=== PATIENT | female | born 1975 | race Caucasian/White ===

== ENCOUNTER 2021-01-22 17:22 | Emergency (ER) | payer MEDICAID, OTHER ==
[~2021-01-22] VITALS: Ht 162.6 cm; Wt 61.2 kg
[~2021-01-22 17:22] MED LIST: ESCI10TA PO
[2021-01-22] MEDS ORDERED: ESCI10TA PO (17:40)
[2021-01-22] MEDS ORDERED: KETOROLAC TROMETHAMINE 15 MG INJ IVP ONE (18:00)
[2021-01-22] MEDS ORDERED: METOCLOPRAMIDE HCL 10 MG/2 ML VIAL IV ONE (18:00)
[2021-01-22] MEDS ORDERED: IV NORMAL SALINE 500 ML BAG IV ONE (18:00)
[2021-01-22] MEDS ORDERED: ACETAMINOPHEN 325 MG TABLET PO ONE (18:00)
[2021-01-22] MEDS ORDERED: diphenhydrAMINE 50 MG/1 ML VIAL IV ONE (18:00)
[2021-01-22] MEDS ORDERED: METOCLOPRAMIDE HCL 10 MG/2 ML VIAL ONE (18:18)
[2021-01-22] MEDS ORDERED: ACETAMINOPHEN 325 MG TABLET ONE (18:18)
[2021-01-22] MEDS ORDERED: KETOROLAC TROMETHAMINE 15 MG INJ ONE (18:18)
[2021-01-22] MEDS ORDERED: diphenhydrAMINE 50 MG/1 ML VIAL ONE (18:18)
[2021-01-22 18:46] LABS: *BILIRUBIN,URIN NEGATIVE (NEGATIVE); *BLOOD, URINE 2+ (NEGATIVE); *CLARITY,URINE SLIGHTLY CLOUDY (CLEAR); *COLOR,URINE YELLOW (YELLOW); *KETONES,URINE TRACE (NEGATIVE); *UROBILINOGEN,URINE 0.2 E.U./dl (NORMAL); LEUKOCYTE ESTERASE ,URINE NEGATIVE (NEGATIVE); NITRITE, URINE NEGATIVE (NEGATIVE); UGLUCOSE NEGATIVE (NEGATIVE)
[2021-01-22 18:49] LABS: *URINE HCG, QUAL NEGATIVE (NEGATIVE)
[2021-01-22 19:04] LABS: BACTERIA,URINE NONE SEEN /HPF (NONE SEEN); WBC,URINE 0-3 /HPF (0-3)
[2021-01-22 19:05] LABS: SQUAMOUS EPITHELIAL CELL,UR MANY /HPF (NONE SEEN)
[2021-01-22] MEDS ORDERED: diphenhydrAMINE 25 MG CAP PO ONE ×2 (19:15→19:24)
--- NOTE | 2021-01-22 19:15 | NUR ---
Pt states headache is gone, and wishes to be discharged.
--- NOTE | 2021-01-22 19:24 | NUR ---
IV removed. Catheter intact and site benign. Pressure and 4x4 gauze applied to site. No bleeding noted.
[2021-01-22 19:33] VITALS: BP 101/65
--- NOTE | 2021-01-22 19:33 | NUR ---
Patient discharged to home in stable condition. Written and verbal after care instructions given. Patient verbalizes understanding of instructions. Stressed follow up or return to ER for worsening s/s.
== END 2021-01-22 19:34 | disposition home or self-care (01) ==
LOC: ER 17:26
DX: R51.9 Headache, unspecified (principal); Z82.49 Family history of ischemic heart disease and other diseases of the circulatory system; F41.9 Anxiety disorder, unspecified; Z79.899 Other long term (current) drug therapy; K58.9 Irritable bowel syndrome, unspecified
CPT/HCPCS: 81001; 84703; 96361; 96374; 96375; 99284; J1200; J1885; J2765; Q0163; A4663; J7030

== ENCOUNTER 2021-01-23 23:20 | Inpatient (IN) | payer OTHER ==
[~2021-01-23] VITALS: Ht 162.6 cm; Wt 61.3 kg
--- NOTE | 2021-01-23 23:45 | NUR ---
Pt here for fever and fatigue past 3 days. States she began having urinary retention today and has not urinated in 6 hours.
[2021-01-24] MEDS ORDERED: IBUPROFEN 600 MG TABLET PO ONE (00:15)
[2021-01-24] MEDS ORDERED: IV NORMAL SALINE 1000 ML BAG IV ONE (00:15)
[2021-01-24] MEDS ORDERED: IBUPROFEN 600 MG TABLET ONE (00:27)
[2021-01-24 00:38] LABS: HEMATOCRIT 35.9 % (31.2-41.9); MEAN CORPUSCULAR HEMOGLOBIN 28.9 uug (24.7-32.8); MEAN CORPUSCULAR VOLUME 86.7 fL (75.5-95.3); PLATELET COUNT (AUTO) 342 K/uL (179-408)
--- NOTE | 2021-01-24 00:40 | NUR ---
Pts. BNP elevated per lab. MD Cleary aware, Per MD Cleary, continue normal saline 2L bolus until completion.
[2021-01-24 00:55] LABS: BILIRUBIN,DIRECT 0.1 mg/dL (0.0-0.2); BILIRUBIN,TOTAL 0.5 mg/dL (0.2-1.0); CREATININE 1.1 mg/dL (0.6-1.3); TOTAL PROTEIN, SERUM 7.8 g/dL (6.4-8.2)
[2021-01-24 00:57] LABS: POTASSIUM 2.6 mmol/L (3.5-5.1)
[2021-01-24] MEDS ORDERED: CEFTRIAXONE 1 G in IV DEXTROSE 5% 50 ML IV ONE (01:15)
[2021-01-24] MEDS ORDERED: IV 1/2 NS + KCL 20 MEQ BAG 1,000 ML IV ONE (01:15)
--- NOTE | 2021-01-24 01:15 | NUR ---
Pt. reports abdominal pain relieved after urinary catheter placed. 800cc romero urine drained. Pt. resting in bed comfortably. Will continue to monitor.
--- NOTE | 2021-01-24 01:20 | NUR ---
Pts stated she felt warm. Oral temp 99.5. Pt. given ice packs.
[2021-01-24 01:24] LABS: *BILIRUBIN,URIN NEGATIVE (NEGATIVE); *BLOOD, URINE 1+ (NEGATIVE); *CLARITY,URINE CLEAR (CLEAR); *COLOR,URINE YELLOW (YELLOW); *KETONES,URINE NEGATIVE (NEGATIVE); *UROBILINOGEN,URINE 0.2 E.U./dl (NORMAL); LEUKOCYTE ESTERASE ,URINE NEGATIVE (NEGATIVE); NITRITE, URINE NEGATIVE (NEGATIVE); UGLUCOSE NEGATIVE (NEGATIVE)
[2021-01-24] MEDS ORDERED: CEFTRIAXONE 1 G VIAL ONE (01:33)
[2021-01-24] MEDS ORDERED: POTASSIUM CHLORIDE 0 ML ONE (01:34)
[2021-01-24 01:46] LABS: BACTERIA,URINE NONE SEEN /HPF (NONE SEEN); SQUAMOUS EPITHELIAL CELL,UR FEW /HPF (NONE SEEN); WBC,URINE 0-3 /HPF (0-3)
[2021-01-24 01:47] LABS: *URINE HCG, QUAL NEGATIVE (NEGATIVE)
[2021-01-24 01:53] LABS: LYMPHOCYTES % (MANUAL) 32 % (20-40); MONOCYTES % (MANUAL) 4 % (2-10); NEUTROPHILS % (MANUAL) 51 % (42-75)
--- NOTE | 2021-01-24 02:19 | NUR ---
US at bedside
--- NOTE | 2021-01-24 02:31 | NUR ---
[facility] called, MD Pritchard paged. Pending call back.
--- NOTE | 2021-01-24 03:18 | NUR ---
Patient will be going to room 312 per Nursing Barrel Stave Inspector Moustapha.
--- NOTE | 2021-01-24 03:21 | NUR ---
Gave report to GARO Lucia.
[2021-01-24] MEDS ORDERED: IV NS 1000 ML 1,000 ML IV ONE (03:30)
[2021-01-24] MEDS ORDERED: Z GUARD REMEDY PASTE 57 GM TUBE TOP PRN (03:30)
--- NOTE | 2021-01-24 04:30 | NUR ---
Admitted a 45 y/o female to [facility] with an admitting diagnosis of FUO and Lactic Acidosis. Pt is ambulatory, transferred to bed by herself. Repositioned comfortably in bed. Head to toe assessment done. No signs of respiratory distress noted on room air. Denies any pain or discomfort. IV access intact and patent, IVF infusing well. With Trejo cath, intact and draining well. Admission care rendered, belongings checked and placed at bedside. Safety measures initiated, call light within reach.
--- NOTE | 2021-01-24 04:30 | NUR ---
Pts total UO since lieberman placement was 2.35 L.
[2021-01-24 04:55] VITALS: BP 98/65
[2021-01-24 06:29] LABS: PHOSPHOROUS 2.8 mg/dL (2.5-4.9); POTASSIUM 3.2 mmol/L (3.5-5.1)
--- NOTE | 2021-01-24 07:00 | NUR ---
pt received in bed sleeping .no c/o pain noted vs are stable call light with in reach
[2021-01-24] MEDS: ESCITALOPRAM OXALATE 10 MG TABLET PO SCH (08:06)
[2021-01-24] MEDS: HYDROCODONE/APAP 5-325MG TABLET PO PRN (08:23)
[2021-01-24 09:22] VITALS: BP 135/61
--- NOTE | 2021-01-24 10:00 | NUR ---
pt c/o of pain in the abdomen and radiate to the back md notified new orders received noted and carried out,
[2021-01-24] MEDS ORDERED: POTASSIUM CHLORIDE 20 MEQ TAB.PRT.SR PO ONE (10:30)
[2021-01-24 11:07] LABS: HEMATOCRIT 34.5 % (31.2-41.9); MEAN CORPUSCULAR HEMOGLOBIN 28.9 uug (24.7-32.8); MEAN CORPUSCULAR VOLUME 88.3 fL (75.5-95.3); PLATELET COUNT (AUTO) 313 K/uL (179-408)
[2021-01-24 11:54] VITALS: BP 121/69
--- NOTE | 2021-01-24 12:00 | NUR ---
dc folly catheter per md orders
[2021-01-24 12:01] LABS: BILIRUBIN,TOTAL 0.3 mg/dL (0.2-1.0); CREATININE 0.8 mg/dL (0.6-1.3); POTASSIUM 3.4 mmol/L (3.5-5.1); TOTAL PROTEIN, SERUM 6.9 g/dL (6.4-8.2)
[2021-01-24] MEDS ORDERED: SWABABLE VALVE TRANSFER SET EA MC ONE (12:06)
[2021-01-24] MEDS ORDERED: IV NORMAL SALINE 250 ML IV ONE (12:07)
[2021-01-24] MEDS ORDERED: IOHEXOL 300MG/ML 100 ML INFUS..BTL ONE (12:07)
--- NOTE | 2021-01-24 14:00 | NUR ---
pt c/o of blurry vision and saying some body give her poison at home md and egg caser made aware
[2021-01-24] MEDS: ONDANSETRON 4 MG/2 ML VIAL IV PRN (15:21)
[2021-01-24 16:21] VITALS: BP 125/69
[2021-01-24] MEDS: ACETAMINOPHEN 325 MG TABLET PO PRN (16:40)
[2021-01-24] MEDS: IBUPROFEN 600 MG TABLET PO PRN (18:18)
[2021-01-24 20:48] VITALS: BP 122/70
[2021-01-25] MEDS: ONDANSETRON 4 MG/2 ML VIAL IV PRN (00:16)
[2021-01-25 00:27] VITALS: BP 122/78
--- NOTE | 2021-01-25 00:55 | NUR ---
Patient continue to c/o blurrry vision .Stated its more blurry on the left side.Non reactive to light.Neeraj eyes able to track.Denies headache.Vomited x1.Zofran IVP given .Patient also c/o neeraj lower legs numbness.Able to move.No edema noted. notified with new order received noted and carried out.
[2021-01-25 04:23] VITALS: BP 123/54
[2021-01-25 06:31] LABS: HEMATOCRIT 35.5 % (31.2-41.9); MEAN CORPUSCULAR VOLUME 86.4 fL (75.5-95.3); PLATELET COUNT (AUTO) 381 K/uL (179-408)
[2021-01-25 06:49] LABS: MAGNESIUM 2.2 mg/dL (1.8-2.4); PHOSPHOROUS 2.7 mg/dL (2.5-4.9); POTASSIUM 4.3 mmol/L (3.5-5.1)
[2021-01-25] MEDS: ESCITALOPRAM OXALATE 10 MG TABLET PO SCH (08:30)
--- NOTE | 2021-01-25 08:48 | NUR ---
pt received laying in bed, alert and oriented able to make needs know, denies pain at this time. patient is on r/a with no episode of sob. Morning meds administered po and tolerated well, pt had breakfast and tolerated well.
[2021-01-25] MEDS: HYDROCODONE/APAP 5-325MG TABLET PO PRN (10:32)
[2021-01-25] MEDS ORDERED: METRONIDAZOLE 500 MG TABLET PO SCH ×2 (11:00→20:00)
[2021-01-25] MEDS: IV NS 1000 ML 1,000 ML IV PRN (11:12)
[2021-01-25] MEDS ORDERED: LACTULOSE 20 G/30 ML LIQUID UDC PO ONE (11:15)
[2021-01-25] MEDS: PANTOPRAZOLE SODIUM 40 MG TABLET.DR PO SCH (11:17)
[2021-01-25 12:00] VITALS: BP 122/73
[2021-01-25] MEDS: CIPROFLOXACIN HCL 250 MG TABLET PO SCH ×2 (12:08→20:31)
[2021-01-25 16:07] VITALS: BP 125/75
--- NOTE | 2021-01-25 18:50 | NUR ---
patient stating " i cant talk" reassure pt that she was currently talking, pt requesting medical update, explained that pt is on IV fluids and on an atb therapy, encouraged po fluid and encouraged to eat dinner. pt remains stable at this time, v/s wnl.
[2021-01-25 19:56] VITALS: BP 138/73
[2021-01-25] MEDS ORDERED: CLOPIDOGREL 75 MG TABLET PO ONE (22:23)
--- NOTE | 2021-01-25 23:00 | NUR ---
Received report of patient from day shift nurse of patient being weak. Upon initial assessment of patient, she was found to be aphasic and unable to move her right lower extremity. Her left lower extremity had mild weakness. Bilateral upper extremities WNL. Pupils both equal but left pupil sluggish to light. Code stroke called at 2038H and patient taken to CT with portable monitor. Dr. Valle notified of patient's condition. At 2134 Dr. Valle notified of patient's CT results. Tele Stroke Robot initiated for use. Neurologist Wisam Beauchamp consulted with patient.
[2021-01-25] MEDS ORDERED: SWABABLE VALVE TRANSFER SET EA MC ONE (23:12)
[2021-01-25] MEDS ORDERED: IOHEXOL 350 100 ML INFUS..BTL ONE (23:12)
[2021-01-25] MEDS ORDERED: IV NORMAL SALINE 250 ML IV ONE (23:12)
--- NOTE | 2021-01-25 23:15 | NUR ---
Pt transferred to CCU bed 3 under care of GARO Sawyer.
[2021-01-25 23:19] VITALS: BP 148/76
[2021-01-25] MEDS: ATORVASTATIN 40 MG TABLET PO SCH (23:28)
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
[2021-01-26] VITALS (27 sets, daily range): BP systolic 110–155; BP diastolic 65–107
[2021-01-26] MEDS ORDERED: CEFTRIAXONE 2 G VIAL IM SCH
[2021-01-26] MEDS ORDERED: FLUCONAZOLE 200 MG/NS 100ML IV 100 MG in PREMIXED 1 EACH IV SCH
--- NOTE | 2021-01-26 | NUR ---
Spoke with Dr. Jay regarding the current status of the patient. Confirmed CTA of the head and carotid arteries ordered by Tele Neurologist. Dr. Jay also discussed ruling out encephalitis and meningitis, though no order for LP at this time. Orders to DC all antibiotics and new orders for Rocephin 2gm IV Daily with first dose now, and Diflucan 100mg IV daily with first dose now.
[2021-01-26] MEDS ORDERED: FLUCONAZOLE 200 MG/100 ML PIGGYBACK ONE (00:51)
[2021-01-26] MEDS ORDERED: CEFTRIAXONE 1 G VIAL ONE ×2 (00:51→00:56)
--- NOTE | 2021-01-26 01:00 | NUR ---
Returned from CT. Patient tolerated CTA and contrast injection without incident or reaction.
[2021-01-26] MEDS: IV NS 1000 ML 1,000 ML IV PRN ×2 (01:32→17:52)
[2021-01-26] MEDS: CEFTRIAXONE 2 G in IV DEXTROSE 5% 100 ML IV SCH (02:34)
[2021-01-26 04:06] LABS: *GC NAA Negative (Negative); *TRIC.VAG. NAA Negative (Negative)
[2021-01-26 05:17] LABS: HEMATOCRIT 30.5 % (31.2-41.9); MEAN CORPUSCULAR HEMOGLOBIN 29.7 uug (24.7-32.8); MEAN CORPUSCULAR VOLUME 86.4 fL (75.5-95.3); PLATELET COUNT (AUTO) 354 K/uL (179-408)
[2021-01-26 05:28] LABS: CREATININE 0.7 mg/dL (0.6-1.3); MAGNESIUM 2.1 mg/dL (1.8-2.4); PHOSPHOROUS 2.6 mg/dL (2.5-4.9)
--- NOTE | 2021-01-26 05:58 | NUR ---
Patient has remained stable throughout the shift. Patient's neuro status seems to vary, sometimes she is alert, and other times she appears confused with eyes rolling around, eyelids half-lidded, head listlessly moving side to side, arms moving with no real purpose, and generally with an overall appearance and mannerisms that is similar to someone grossly intoxicated. Patient has remained afebrile, though feels a little warm, with oral temperature 98.6 at this time. VS remained stable HR in the 60s-70s SR, BP in the 130s systolic, O2 SAT 100% RA, no complaints of pain. Patient has been self administering fluids, drinking 2/3rds a bottle of water. Patient able to swallow well without signs of aspiration.
[2021-01-26] MEDS: PANTOPRAZOLE SODIUM 40 MG TABLET.DR PO SCH (07:05)
[2021-01-26] MEDS: ESCITALOPRAM OXALATE 10 MG TABLET PO SCH ×2 (08:18→08:36)
[2021-01-26] MEDS ORDERED: SWABABLE VALVE TRANSFER SET EA MC ONE (09:00)
[2021-01-26] MEDS ORDERED: IOHEXOL 350 100 ML INFUS..BTL ONE (09:01)
[2021-01-26] MEDS ORDERED: IV NORMAL SALINE 250 ML IV ONE (09:01)
[2021-01-26 09:47] LABS: BILIRUBIN,DIRECT 0.2 mg/dL (0.0-0.2); BILIRUBIN,TOTAL 0.4 mg/dL (0.2-1.0); TOTAL PROTEIN, SERUM 6.7 g/dL (6.4-8.2)
--- NOTE | 2021-01-26 10:01 | NUR ---
patient back from CT of head. No abnormalities during transport. case management called for arrangement for MRI transport to be set at 11.
[2021-01-26 10:22] LABS: THYROID STIMULATING HORMONE 0.33 mIU/mL (0.358-3.740)
--- NOTE | 2021-01-26 12:08 | NUR ---
plan for intubation post MRI arrival.
--- NOTE | 2021-01-26 12:36 | NUR ---
positive bubble study. MRI transport here and cleared to got to MRI per Dr. Banks. informed Ashlye, waiting for final clearance per ashley.
[2021-01-26 12:51] LABS: ABG BASE EXCESS -0.5 mmol/L; ABG HCO3 23.4 mmol/L; ABG PCO2 35.8 mmHg (35.0-45.0); ABG PH 7.434 (7.350-7.450); ABG PO2 82.3 mmHg (75.0-100.0); ABG SITE LEFT BRACHIAL; ABG TOTAL HEMOGLOBIN 10.8 G/dL (12.0-16.0); COHb 0.9 % (0.5-1.5); MetHb 0.2 % (0.0-1.5); O2Hb 95.2 % (94.0-97.0); VENT MODE Nasal Cannula
[2021-01-26 12:52] LABS: BILIRUBIN,DIRECT 0.2 mg/dL (0.0-0.2); BILIRUBIN,TOTAL 0.5 mg/dL (0.2-1.0); TOTAL PROTEIN, SERUM 6.8 g/dL (6.4-8.2)
--- NOTE | 2021-01-26 12:56 | NUR ---
patient taken to MRI cleared by cardio and primary. patient left at this time. and Covid result is negative.
[2021-01-26] MEDS: ENSURE ENLIVE (VAN) 240 ML LIQUID PO SCH ×2 (13:00→17:00)
--- NOTE | 2021-01-26 13:49 | NUR ---
due to plavix being given per radiologist patient can not have LP done for 5 days since the last dose. will let ID now
--- NOTE | 2021-01-26 14:41 | NUR ---
patient back from MRI.
[2021-01-26] MEDS ORDERED: DEXTROSE 5% IV SCH (15:00)
[2021-01-26] MEDS ORDERED: ACYCLOVIR IV SCH (15:00)
[2021-01-26] MEDS ORDERED: NOREPINEPHRINE BITARTRATE 8 MG in IV NORMAL SALINE 242 ML IV PRN (15:15)
[2021-01-26] MEDS ORDERED: PROPOFOL 100 ML IV PRN (15:15)
--- NOTE | 2021-01-26 15:35 | NUR ---
patient intubated at this time per DR. gusman in ER for airway protection. 30mg of Etomidate and 80 of succinylcholine was given for intubation.
--- NOTE | 2021-01-26 15:35 | NUR ---
Pt intubated for airway protection per Ashley Arenas WELDER FITTER. Assisted ER Dr. Glaser. 7.0 ETT @ approx 21cm at the lip. Given vent settings AC RR 16, Vt 450, PEEP +5, Fio2 30%. Tolerating well. ABG done in 1 hr.
[2021-01-26 17:07] LABS: ABG BASE EXCESS 0.2 mmol/L; ABG HCO3 23.7 mmol/L; ABG PCO2 34.7 mmHg (35.0-45.0); ABG PH 7.453 (7.350-7.450); ABG PO2 128.6 mmHg (75.0-100.0); ABG SITE LEFT BRACHIAL; COHb 0.9 % (0.5-1.5); MetHb 0.3 % (0.0-1.5); O2Hb 97.5 % (94.0-97.0); VENT MODE VENT - A/C; VT, ABG 450 mL
[2021-01-26] MEDS: DEXTROSE 5% IV SCH (17:49)
[2021-01-26] MEDS: VANCOMYCIN IV 1,000 MG in IV DEXTROSE 5% 250 ML IV SCH (17:49)
[2021-01-26] MEDS: ACYCLOVIR IV SCH (17:49)
[2021-01-26] MEDS: FLUCONAZOLE 400MG /NS 200ML IV 400 MG in PREMIXED 1 EACH IV SCH (17:52)
--- NOTE | 2021-01-26 19:30 | NUR ---
Report received. Patient admitted 01/24/21 DX: Fever of unknown origin and lactic acidosis. S/P intubation this pm to mechanical ventilator with settings AC=16, PC=655 ml, FIO2=30% and PEEP=5 cm. O2 saturations above 94%. Opens eyes to pain, doesn't track or follow any commands. Withdraws to pain. Turned and repositioned. Addendum: 01/27/21 at 0055 by MICKEY WALDROP RN Amended: Links added. Addendum: 01/27/21 at 0055 by MICKEY WALDROP RN Amended: Links added. Addendum: 01/27/21 at 0102 by MICKEY WALDROP RN Amended: Links added.
[2021-01-26] MEDS ORDERED: methylPREDNISolone SOD SUCC 1,000 MG in IV DEXTROSE 5% 250 ML IV SCH (20:00)
--- NOTE | 2021-01-26 20:00 | NUR ---
Dr. Jay here along with patient's friend Tanya who as per report is an [employer]. had discussed with Tanya plan of care.
--- NOTE | 2021-01-26 20:15 | NUR ---
As friend Tanya visits, patient opens eyes to name calls, appears to track, able to follow basic command such as squeeze RN's hands. Withdraws LEs from stroking.
[2021-01-26] MEDS ORDERED: CLOPIDOGREL 75 MG TABLET PO SCH (21:00)
--- NOTE | 2021-01-26 21:00 | NUR ---
Spoke to Susana Arenas NURSE ORTHOPEDIC re: LP procedure that according to Tanya family wants done KENYA. Orders received from Susana Arenas.
[2021-01-26] MEDS: methylPREDNISolone SOD SUCC 1,000 MG in IV DEXTROSE 5% 250 ML IV SCH (21:11)
[2021-01-26] MEDS: ATORVASTATIN 40 MG TABLET PO SCH (21:12)
[2021-01-26 21:44] LABS: *URINE HCG, QUAL NEGATIVE (NEGATIVE)
--- NOTE | 2021-01-26 21:45 | NUR ---
Phone consent for Lumbar puncture obtained from patient's mother Katia Wesley #[phone].
[2021-01-27] VITALS (32 sets, daily range): BP systolic 95–135; BP diastolic 55–77
--- NOTE | 2021-01-27 | NUR ---
Bath given. Patient with eyes open, tracks and follow simple commands such as squeezing RN's hands. Turned and repositioned. Addendum: 01/27/21 at 0102 by MICKEY WALDROP RN Amended: Links added.
[2021-01-27] MEDS: CEFTRIAXONE 2 G in IV DEXTROSE 5% 100 ML IV SCH (01:11)
[2021-01-27] MEDS: ACYCLOVIR IV SCH ×3 (02:06→18:08)
[2021-01-27] MEDS: DEXTROSE 5% IV SCH ×3 (02:06→18:08)
--- NOTE | 2021-01-27 03:00 | NUR ---
PATIENT ON CONT PB 840 VENT WITH 7.0 ET/TUBE IN PLACE AND SECURED WITH ANCHOR FAST IN PLACE, AND MOVE Q2 HOURS; VENT SETTINGS, A/C 16 , 450ML, PEEP5, FIO2 @ 30% ; SUCTIONED SLIGHT PINKISH TINGE SECRETIONS, SUCTION MOUTH, PT DOES ASSIST AT TIMES, SLIGHTLY WAKES UP WITH EYES OPEN AT TIMES, NO VENT CHANGES MADE, ABG @ 0800 ORDERED. Stacia KIRKLAND RCP Addendum: 01/27/21 at 0304 by ALVIN KIRKLAND RT Amended: Links added.
[2021-01-27 05:01] LABS: HEMATOCRIT 29.5 % (31.2-41.9); MEAN CORPUSCULAR HEMOGLOBIN 29.4 uug (24.7-32.8); MEAN CORPUSCULAR VOLUME 86.6 fL (75.5-95.3); PLATELET COUNT (AUTO) 329 K/uL (179-408)
[2021-01-27] MEDS: VANCOMYCIN IV 1,000 MG in IV DEXTROSE 5% 250 ML IV SCH ×2 (05:11→18:08)
[2021-01-27 05:22] LABS: BILIRUBIN,TOTAL 0.6 mg/dL (0.2-1.0); CREATININE 0.7 mg/dL (0.6-1.3); MAGNESIUM 2.4 mg/dL (1.8-2.4); PHOSPHOROUS 2.8 mg/dL (2.5-4.9); TOTAL PROTEIN, SERUM 6.3 g/dL (6.4-8.2)
[2021-01-27] MEDS: IV NS 1000 ML 1,000 ML IV PRN ×2 (06:15→20:08)
[2021-01-27] MEDS: PANTOPRAZOLE SODIUM 40 MG TABLET.DR PO SCH (06:16)
--- NOTE | 2021-01-27 06:30 | NUR ---
Seen by Dr. Davidson; updated of patient's condition.
--- NOTE | 2021-01-27 06:40 | NUR ---
Dr. Garcia visited. Aware of patient's condition and pending LP procedure.
--- NOTE | 2021-01-27 06:41 | NUR ---
Condition unchanged. Opens eyes to name, tracks, able to follow basic commands such as turn head to R, squeeze RN's hand. Withdraws L leg to pain. R leg and hand flaccid. Remains on the same vent settings; O2 saturations above 96%. BPs stable. engineer systems SR rate 60's-70's.
[2021-01-27] MEDS: ENSURE ENLIVE (VAN) 240 ML LIQUID PO SCH ×3 (07:50→17:00)
[2021-01-27] MEDS: ESCITALOPRAM OXALATE 10 MG TABLET PO SCH (08:06)
[2021-01-27 08:40] LABS: ABG BASE EXCESS 1.9 mmol/L; ABG HCO3 25.3 mmol/L; ABG PH 7.477 (7.350-7.450); ABG PO2 109.1 mmHg (75.0-100.0); ABG SITE LEFT RADIAL; ABG TOTAL HEMOGLOBIN 10.7 G/dL (12.0-16.0); COHb 0.8 % (0.5-1.5); MetHb 0.3 % (0.0-1.5); O2Hb 97.2 % (94.0-97.0); VENT MODE VENT - A/C; VT, ABG 450 mL
--- NOTE | 2021-01-27 10:00 | NUR ---
Dr. Emery in unit to assess patient Dr. Emery notes (along w/ Dr. Garcia) that this patient requires transfer to a facility for higher level of care. I contacted Ashley Arenas and she has involved [facility] THORNTON to help facilitate a transfer. Case management involved as well.
--- NOTE | 2021-01-27 10:25 | NUR ---
Dr. Collins [facility] contacted for stat lumbar puncture - states "he is working on it & will get back to us sonia"
--- NOTE | 2021-01-27 10:53 | NUR ---
Dr. Powers on his way to perform lumbar puncture
--- NOTE | 2021-01-27 11:00 | NUR ---
Patient being transferred down to radiology to have lumbar puncture performed by radiologist at this time
--- NOTE | 2021-01-27 12:05 | NUR ---
Patient back from radiology at this time - Radiologist not able to perform lumbar puncture in lateral position & not comfortable proning without the presence of anesthesiologist to manage airway of intubated patient.
--- NOTE | 2021-01-27 12:29 | NUR ---
Reading Specialist has coordinated for Anesthesiologist, Radiologist, Recovery nurse, & ICU nurse (myself) to be present in radiology for Lumbar Puncture to be performed at 1400. Anesthesia & Radiology will be in touch to coordinate their arrival together.
[2021-01-27] MEDS ORDERED: ETOMIDATE 20 MG/10 ML VIAL MC ONE (15:19)
[2021-01-27] MEDS ORDERED: SUCCINYLCHOLINE CHLORIDE 200 MG/10 ML VIAL MC ONE (15:19)
--- NOTE | 2021-01-27 15:25 | NUR ---
Contacted radiologist that will be performing lumbar puncture - was told he will give us "30 minutes notice" prior to arrival.
--- NOTE | 2021-01-27 15:52 | NUR ---
Radiologist with ETA of 40 minutes
[2021-01-27] MEDS: IBUPROFEN 600 MG TABLET PO PRN (15:54)
[2021-01-27] MEDS: LORAZEPAM 2 MG/1 ML VIAL IV ONE ×2 (16:11→17:37)
--- NOTE | 2021-01-27 16:30 | NUR ---
Timeout called - consent present, correct procedure, patient verified, allergies (nka). Patient was positioned proned with help of RT, recovery nurse, myself, and anesthesiologist. Patient was given 100mg fentanyl, 200mg propofol, 200cc NS throughout course of procedure which concluded at 1712. Samples were taken to laboratory and i notified lab to keep whatever was left of samples in the case that further testing is required.
[2021-01-27] MEDS ORDERED: FENTANYL CITRATE 100 MCG/2 ML AMPUL ONE (16:43)
--- NOTE | 2021-01-27 17:20 | NUR ---
Patient back to ICU at this time. Accompanied by myself, RT, & anesthesiologist. BP: 102/68 HR 49 Temp: 97.2 RR: 18 Sat: 98%
[2021-01-27] MEDS ORDERED: PROPOFOL 200 MG/20 ML BOTTLE IV ONE (17:25)
--- NOTE | 2021-01-27 17:38 | NUR ---
Ativan removed and wasted (witnessed by Latia RN) - not used in IR - Anesthesia present and administered her own sedatives
--- NOTE | 2021-01-27 18:18 | NUR ---
2100 solumedrol drip given now per orders from Neurologist Dr. Garcia
[2021-01-27] MEDS: methylPREDNISolone SOD SUCC 1,000 MG in IV DEXTROSE 5% 250 ML IV SCH (18:26)
--- NOTE | 2021-01-27 18:51 | NUR ---
Patient opens eyes to name. Able to track. PERRLA. Strength greater on the left than the right. Sinus rhythm & sinus staci post lumbar puncture (200mg propofol + 100mg fentanyl given by anesthesia). BPs stable w/o the need for pressor support. 99.5 temperature - ice packs applied to prevent an increase in temp. Respirations even and unlabored. Vent settings unchanged. Secretions minimal. GI/: no bowel movement. 1200cc clear + yellow urine.
--- NOTE | 2021-01-27 19:00 | NUR ---
received patient awake , calm , left hand can squeeze and [employer] combination teacher lightly , right hand is very weak , ac 16 tv 450 ,p fio2 30 % , sb at 55 , left and right iv intact , lieberman draining yellow , , ngt clamped , placement verified
[2021-01-27 19:02] LABS: CSF GLUCOSE 44 mg/dL (40-70)
[2021-01-27 19:04] LABS: CSF PROTEIN 165 mg/dL (15-45)
[2021-01-27] MEDS: FLUCONAZOLE 400MG /NS 200ML IV 400 MG in PREMIXED 1 EACH IV SCH (19:05)
--- NOTE | 2021-01-27 19:07 | NUR ---
Laboratory with report of CSF Protein 165 & WBC [address] Garcia.
--- NOTE | 2021-01-27 20:00 | NUR ---
family at bedside
[2021-01-27] MEDS: ATORVASTATIN 40 MG TABLET PO SCH (20:08)
--- NOTE | 2021-01-27 21:30 | NUR ---
dr garcia was called to notify of low heart rate , no order received
[2021-01-28] VITALS (34 sets, daily range): BP systolic 101–131; BP diastolic 51–77
--- NOTE | 2021-01-28 00:51 | NUR ---
PATIENT ON CONT PB 840 VENT WITH 7.0 ET/TUBE IN PLACE SECURED WITH ANCHOR FAST, ROTATE Q2, SUCTION MOUTH WITH STEVIE CHAN, CURRENT VENT SETTINGS, A/C 16, 450ML, PEEP5, FIO2 @ 30%, PT DOES OPEN HER EYES AT TIMES, , ALSO PATIENT DOES ASSIST AT TIMES, ALL VENT ALARMS GOOD, CHANGE HME AND MURILLO, NO VENT CHANGES MADE, AMBU BAG AT BEDSIDE, VENT PLUGGED INTO RED WALL OUT. Stacia KIRKLAND RCP Addendum: 01/28/21 at 0053 by ALVIN KIRKLAND RT Amended: Links added.
[2021-01-28] MEDS: DEXTROSE 5% IV SCH ×3 (01:46→18:18)
[2021-01-28] MEDS: ACYCLOVIR IV SCH ×3 (01:46→18:18)
[2021-01-28] MEDS: CEFTRIAXONE 2 G in IV DEXTROSE 5% 100 ML IV SCH (01:47)
[2021-01-28 05:17] LABS: HEMATOCRIT 27.9 % (31.2-41.9); MEAN CORPUSCULAR HEMOGLOBIN 29.2 uug (24.7-32.8); MEAN CORPUSCULAR VOLUME 86.5 fL (75.5-95.3); PLATELET COUNT (AUTO) 358 K/uL (179-408)
[2021-01-28 05:26] LABS: CREATININE 0.8 mg/dL (0.6-1.3); MAGNESIUM 2.4 mg/dL (1.8-2.4); PHOSPHOROUS 3.2 mg/dL (2.5-4.9); POTASSIUM 3.7 mmol/L (3.5-5.1)
[2021-01-28] MEDS: IV NS 1000 ML 1,000 ML IV PRN ×2 (06:05→16:14)
[2021-01-28] MEDS: VANCOMYCIN IV 1,000 MG in IV DEXTROSE 5% 250 ML IV SCH (06:08)
[2021-01-28] MEDS: PANTOPRAZOLE SODIUM 40 MG TABLET.DR PO SCH (06:17)
--- NOTE | 2021-01-28 07:14 | NUR ---
Pt received in bed, laying semi-Concepcion's, unable to communicate.. Orally intubated, ETT 7.[address] and secure with anchor fast.. Mechanical ventilation: settings A/C 16, Vt 450, PEEP +5, FiO2 30%, tolerating well, no changes made.. BVM at bedside.. Alarms on and audible.. Will continue to monitor..
[2021-01-28 08:06] LABS: HEPATITIS A AB, IgM Negative (Negative); HEPATITIS A AB, TOTAL Positive (Negative); HEPATITIS Be ANTIGEN Negative (Negative)
[2021-01-28] MEDS: ENSURE ENLIVE (VAN) 240 ML LIQUID PO SCH ×2 (09:00→13:00)
[2021-01-28] MEDS: ESCITALOPRAM OXALATE 10 MG TABLET PO SCH (09:28)
[2021-01-28 13:14] LABS: BILIRUBIN,DIRECT 0.2 mg/dL (0.0-0.2); BILIRUBIN,TOTAL 0.4 mg/dL (0.2-1.0)
[2021-01-28] MEDS: VANCOMYCIN IV 1,250 MG in IV DEXTROSE 5% 250 ML IV SCH (16:15)
[2021-01-28] MEDS: FLUCONAZOLE 400MG /NS 200ML IV 400 MG in PREMIXED 1 EACH IV SCH (18:18)
--- NOTE | 2021-01-28 19:30 | NUR ---
Report received. Patient orally intubated and to mechanical ventilator settings as follows: AC=16, FIO2=30%, TV= 450ml and PEEP=5 cm. O2 saturations above 95%. Opens eyes, tracks and follows basic commands. R arm flaccid, withdraws both legs from stroking and able to squeeze with L hand but weak. Monitor: SR-SB. BPs stable. Assessment completed. Addendum: 01/28/21 at 2247 by MICKEY WALDROP RN Amended: Links added. Addendum: 01/28/21 at 2247 by MICKEY WALDROP RN Amended: Links added. Addendum: 01/28/21 at 2247 by MICKEY WALDROP RN Amended: Links added. Addendum: 01/28/21 at 2247 by MICKEY WALDROP RN Amended: Links added. Addendum: 01/28/21 at 2248 by MICKEY WALDROP RN Amended: Links added. Addendum: 01/28/21 at 2248 by MICKEY WALDROP RN Amended: Links added. Addendum: 01/28/21 at 2248 by MICKEY WALDROP RN Amended: Links added. Addendum: 01/28/21 at 2248 by MICKEY WALDROP RN Amended: Links added. Addendum: 01/28/21 at 2250 by MICKEY WALDROP RN Amended: Links added. Addendum: 01/28/21 at 2250 by MICKEY WALDROP RN Amended: Links added. Addendum: 01/28/21 at 2250 by MICKEY WALDROP RN Amended: Links added. Addendum: 01/28/21 at 2251 by MICKEY WALDROP RN Amended: Links added. Addendum: 01/28/21 at 2251 by MICKEY WALDROP RN Amended: Links added. Addendum: 01/28/21 at 2253 by MICKEY WALDROP RN Amended: Links added. Addendum: 01/28/21 at 2253 by MICKEY WALDROP RN Amended: Links added. Addendum: 01/28/21 at 4 by MICKEY WALDROP RN Amended: Links added.
[2021-01-28] MEDS: methylPREDNISolone SOD SUCC 1,000 MG in IV DEXTROSE 5% 250 ML IV SCH (20:51)
[2021-01-28] MEDS: ATORVASTATIN 40 MG TABLET PO SCH (20:55)
--- NOTE | 2021-01-28 22:14 | NUR ---
Bath given. Patient awake, tracks during care. Turned and repositioned. Tolerating NGT feedings; rate increased to 20ml/H. Addendum: 01/28/21 at 2214 by MICKEY WALDROP RN Amended: Links added. Addendum: 01/28/21 at 2247 by MICKEY WALDROP RN Amended: Links added. Addendum: 01/28/21 at 2247 by MICKEY WALDROP RN Amended: Links added. Addendum: 01/28/21 at 8 by MICKEY WALDROP RN Amended: Links added. Addendum: 01/28/21 at 2248 by MICKEY WALDROP RN Amended: Links added. Addendum: 01/28/21 at 2248 by MICKEY WALDROP RN Amended: Links added. Addendum: 01/28/21 at 2248 by MICKEY WALDROP RN Amended: Links added. Addendum: 01/28/21 at 2248 by MICKEY WALDROP RN Amended: Links added. Addendum: 01/28/21 at 2249 by MICKEY WALDROP RN Amended: Loreta added. Addendum: 01/28/21 at 2250 by MICKEY WALDROP RN Amended: Loreta added. Addendum: 01/28/21 at 2250 by MICKEY WALDROP RN Amended: Links added. Addendum: 01/28/21 at 2250 by MICKEY WALDROP RN Amended: Links added. Addendum: 01/28/21 at 2251 by MICKEY WALDROP RN Amended: Links added. Addendum: 01/28/21 at 2251 by MICKEY WALDROP RN Amended: Links added. Addendum: 01/28/21 at 2253 by MICKEY WALDROP RN Amended: Links added. Addendum: 01/28/21 at 2254 by MICKEY WALDROP RN Amended: Links added. Addendum: 01/28/21 at 7004 by MICKEY WALDROP RN Amended: Links added.
--- NOTE | 2021-01-28 23:31 | NUR ---
PATIENT ON CONT PB 840 VENT WITH 7.0 ET/TIBE I PLACE AND SECURED WITH ANCHOR FAST, ROTATE Q2 HOURS, SUCTIONED VERY LIGHT PALE YELL TINGE SECRETIONS, AND SUCTION MOUTH GENTLY WIT DUSTIN HUBBARD WELL, NO VENT CHANGES MADE, CHANGE HME, CURRENT VENT SETTINGS, A/C 16, 450ML, PEEP 5, FIO2 @ 30%, ALL VENT ALARMS GOOD, PT DOES OPEN HER EYES AT TIMES, PT DOES ASSIST AT TIMES. Stacia DELAROSAP Addendum: 01/28/21 at 2333 by ALVIN KIRKLAND RT Amended: Links added.
[2021-01-29] VITALS (36 sets, daily range): BP systolic 93–129; BP diastolic 48–97
[2021-01-29] MEDS: CEFTRIAXONE 2 G in IV DEXTROSE 5% 100 ML IV SCH (01:32)
[2021-01-29] MEDS: ACYCLOVIR IV SCH ×3 (01:55→20:21)
[2021-01-29] MEDS: DEXTROSE 5% IV SCH ×3 (01:55→20:21)
[2021-01-29] MEDS: VANCOMYCIN IV 1,250 MG in IV DEXTROSE 5% 250 ML IV SCH ×2 (04:23→18:38)
[2021-01-29] MEDS: IV NS 1000 ML 1,000 ML IV PRN (04:26)
[2021-01-29 05:06] LABS: HEMATOCRIT 27.4 % (31.2-41.9); MEAN CORPUSCULAR HEMOGLOBIN 29.7 uug (24.7-32.8); MEAN CORPUSCULAR VOLUME 86.9 fL (75.5-95.3); PLATELET COUNT (AUTO) 372 K/uL (179-408)
[2021-01-29 05:17] LABS: BILIRUBIN,DIRECT 0.1 mg/dL (0.0-0.2); BILIRUBIN,TOTAL 0.3 mg/dL (0.2-1.0); CREATININE 0.7 mg/dL (0.6-1.3); MAGNESIUM 2.5 mg/dL (1.8-2.4); POTASSIUM 3.8 mmol/L (3.5-5.1); TOTAL PROTEIN, SERUM 5.8 g/dL (6.4-8.2)
[2021-01-29 05:40] LABS: ABG BASE EXCESS 1.5 mmol/L; ABG HCO3 24.7 mmol/L; ABG PCO2 33.4 mmHg (35.0-45.0); ABG PH 7.486 (7.350-7.450); ABG PO2 109.6 mmHg (75.0-100.0); ABG SITE RIGHT RADIAL; ABG TOTAL HEMOGLOBIN 9.9 G/dL (12.0-16.0); COHb 0.5 % (0.5-1.5); MetHb 0.3 % (0.0-1.5); O2Hb 97.3 % (94.0-97.0); VENT MODE VENT - A/C
[2021-01-29] MEDS: PANTOPRAZOLE SODIUM 40 MG TABLET.DR PO SCH (06:16)
--- NOTE | 2021-01-29 06:30 | NUR ---
No neuro changes. ekg monitor SB-SR rate 47-60's. BPs stable. Tolerating NGT feedings well; rate increased to 30 ml/H, goal 60 ml/H.
--- NOTE | 2021-01-29 07:05 | NUR ---
Received pt. on ventilator A/C 16, tv 450, 30% FIO2, and PEEP +% saturation of 96-98, no respiratory distress. Patient awake with cough and gag reflex present, tracking. right side weakness but noticed that pt. was able to bend her rue. Cardiac-gustafson stable with sbp sustained with no need of vasopressors. NG to feeding with zero residuals. lieberman to gravity. Upon assessment of skin no breakdown or pressure sore noted. Will continue with care plan.
--- NOTE | 2021-01-29 08:00 | NUR ---
Pulmonary services, Dr. Emery in the unit to see and examine pt. report given See order hx,.
[2021-01-29] MEDS: ESCITALOPRAM OXALATE 10 MG TABLET PO SCH (08:05)
--- NOTE | 2021-01-29 09:35 | NUR ---
A call to Dr. Garcia as requested earlier report given orders to start pt. on backlofen 10mg TID at this time Dr. Garcia spoke with pt's brother Mr. Rutledge over the phone and updated him on care plan.
--- NOTE | 2021-01-29 12:00 | NUR ---
Attending Ms. Arenas in the unit to see and examine pt. report given and at this time she had a phone conference with pt's spoke's person
[2021-01-29] MEDS: BACLOFEN 10 MG TABLET PO SCH ×2 (13:00→18:41)
[2021-01-29] MEDS: ENOXAPARIN SODIUM 40 MG/0.4 ML DISP.SYRIN SQ SCH (13:16)
--- NOTE | 2021-01-29 15:30 | NUR ---
Neurologist Dr. Garcia in the unit to visit pt.
--- NOTE | 2021-01-29 15:40 | NUR ---
Pt's mother in the unit and at this time Dr. Garcia called and he's having a conference with pt's mother on the phone.
[2021-01-29] MEDS: FLUCONAZOLE 400MG /NS 200ML IV 400 MG in PREMIXED 1 EACH IV SCH (18:41)
--- NOTE | 2021-01-29 19:22 | NUR ---
Received pt on PB-840 vent with the following settings of AC-16, Vt-450, PEEP+5, FIO2-30%, orally intubated with 7.0 ETT~22cm at lip line. No s/s of respiratory distress noted. Airway care done, pt responded to physical stimuli. HME changed. ETT repositioned Q2. Resus. bag at bedside. Vent and alarms on and audible.
--- NOTE | 2021-01-29 19:26 | NUR ---
Left pt. on ventilator A/C 16, tv 450, 30% FIO2, and PEEP +% saturation of 96-98, no respiratory distress. Patient awake with cough and gag reflex present, tracking. right side weakness but noticed that pt. was able to bend her rue. Cardiac-gustafson stable with sbp sustained with no need of vasopressors. NG to feeding with zero residuals. lieberman to gravity. No skin no breakdown or pressure sore, Will continue with care plan.
--- NOTE | 2021-01-29 19:30 | NUR ---
Report received. Call received from Tanya patient's friend inquiring about patient's condition. Advised appropriately. Referred to patient's mother for info. Patient assessed. Opens eyes, tracks and follows simple commands such as turn head and squeeze RN's hands. Both arms rigid, ? posturing position able to squeeze with L hand but weak. Turned and repositioned. cardiac monitor: SB to SR rate 40's-60's. BPs stable. With cough and gag reflexes during suctioning and oral care. With small amounts of beige colored secretions from ETT. Tolerating NGT feedings; no residual, rate increased to 50 ml/H (goal 60 ml/H x 22H).
--- NOTE | 2021-01-29 20:00 | NUR ---
Patient's mother called; requesting to speak to ID . Advised appropriately. As per report MDs talked to her and patient's brother. This RN informed patient's mother that her request will be passed on to next shift and advised to list down her questions for MDs. A few minutes later Tanya patient's friend called. Advised of patient's condition. Addendum: 01/29/21 at 2157 by MICKEY WALDROP RN Amended: Links added.
--- NOTE | 2021-01-29 23:10 | NUR ---
cook barbecue SB-junctional rhythm rate 38-40. BPs stable. Dr. Banks notified. Will monitor. Addendum: 01/29/21 at 2312 by MICKEY WALDROP RN Amended: Links added.
[2021-01-29] MEDS ORDERED: HYDROCORTISONE SOD SUCCINATE 100 MG/2 ML VIAL IV ONE ×4 (23:47)
[2021-01-29] MEDS ORDERED: methylPREDNISolone SOD SUCC 125 MG/2 ML VIAL ONE ×4 (23:48→23:55)
[2021-01-29] MEDS: methylPREDNISolone SOD SUCC 1,000 MG in IV DEXTROSE 5% 250 ML IV SCH (23:49)
--- NOTE | 2021-01-29 23:49 | NUR ---
Solumedrol IVPB given as ordered by Susana Arenas NP. Delayed med administration as med not available until 2348.
[2021-01-30] VITALS (33 sets, daily range): BP systolic 111–137; BP diastolic 61–80
[2021-01-30] MEDS: CEFTRIAXONE 2 G in IV DEXTROSE 5% 100 ML IV SCH (01:27)
[2021-01-30] MEDS: DEXTROSE 5% IV SCH ×2 (01:37→09:07)
[2021-01-30] MEDS: ACYCLOVIR IV SCH ×2 (01:37→09:07)
--- NOTE | 2021-01-30 02:00 | NUR ---
Am care rendered; routine skin care provided. Patient is having small amounts of bloody vaginal discharge- monthly period. Pad provided. No neuro changes. Turned and repositioned. HOB elevated above 30 degrees at all times.
[2021-01-30] MEDS: IV NORMAL SALINE 250 ML IV PRN (03:13)
[2021-01-30] MEDS: IV NS 1000 ML 1,000 ML IV PRN ×2 (03:13→18:51)
[2021-01-30 04:18] LABS: HEMATOCRIT 27.9 % (31.2-41.9); MEAN CORPUSCULAR HEMOGLOBIN 29.3 uug (24.7-32.8); MEAN CORPUSCULAR VOLUME 87.2 fL (75.5-95.3); PLATELET COUNT (AUTO) 348 K/uL (179-408)
[2021-01-30 04:27] LABS: CREATININE 0.8 mg/dL (0.6-1.3); MAGNESIUM 2.6 mg/dL (1.8-2.4); POTASSIUM 3.9 mmol/L (3.5-5.1)
[2021-01-30] MEDS: VANCOMYCIN IV 1,250 MG in IV DEXTROSE 5% 250 ML IV SCH ×2 (04:50→16:28)
[2021-01-30] MEDS: PANTOPRAZOLE SODIUM 40 MG TABLET.DR PO SCH (06:02)
--- NOTE | 2021-01-30 07:04 | NUR ---
Condition unchanged. BPs stable. Remains SB rate 40's-50's. Tolerating NGT feedings; no residuals.
--- NOTE | 2021-01-30 07:35 | NUR ---
Received pt on PB-840 vent with the following settings of AC 16, Vt 450, PEEP+5, FIO2 30%, orally intubated with 7.0 ETT, 22cm at lip line. No s/s of respiratory distress noted. Airway care done. BVM bag at bedside. Vent and alarms on and audible.
--- NOTE | 2021-01-30 07:50 | NUR ---
Pulmonary services, Dr. Emery in the unit to see and examine pt. report given see order hx.
--- NOTE | 2021-01-30 08:00 | NUR ---
Sample Distributor Dr. Banks in the unit to see and examine pt. report given and orders to decrease IV to 50cc/hr received and implemented.
[2021-01-30] MEDS: ENOXAPARIN SODIUM 40 MG/0.4 ML DISP.SYRIN SQ SCH (08:20)
[2021-01-30] MEDS: BACLOFEN 10 MG TABLET PO SCH ×3 (08:20→16:39)
[2021-01-30] MEDS: ESCITALOPRAM OXALATE 10 MG TABLET PO SCH (08:20)
[2021-01-30] MEDS: JEVITY 1.2 1000 ML LIQUID GT PRN (08:21)
--- NOTE | 2021-01-30 08:28 | NUR ---
Received pt. on ventilator A/C 16, tv 450, 30% FIO2, and PEEP +5 saturation of 96-98, no respiratory distress. Patient awake with cough and gag reflex present, tracking. right side weakness but noticed that pt. attempted to director of security on command. Cardiac-gustafson on sinus bradycardia low 40's 50's with sbp stable with no need of vasopressors. GI: tolerating NG feeding with zero residuals. lieberman to gravity. Upon assessment small blanchable area to left earlobe. Will continue with care plan.
--- NOTE | 2021-01-30 08:45 | NUR ---
A call from Ms. Griselda garcia's spokes person.
--- NOTE | 2021-01-30 09:37 | NUR ---
REZA Tony in the unit to follow up on pt. report given and she was also informed of pt's mother request for a call to update her. As stated "I'll informed Dr. Castorena to call her and discussed care plan with her".
--- NOTE | 2021-01-30 10:30 | NUR ---
A call from Ms. Montalvo Pt's mother at this time stating "I personally called the insurance and upgraded my daughter's coverage now I want to make arrangements for transfer" Ms. Montalvo informed that [facility] correctional case records supervisor production editor will be called to informed her. She was also explained that we nurses don't deal with insurance coverage.
--- NOTE | 2021-01-30 10:35 | NUR ---
Berenice STERLING called and she was informed of latest insurance statements from pt's mother. At this time I was informed by Berenice that financial department will contact Ms. Montalvo.
[2021-01-30 11:06] LABS: CMV, IgG >10.00 U/mL (0.00-0.59)
[2021-01-30] MEDS: AMPICILLIN IV 2 G in IV NORMAL SALINE 100 ML IV SCH ×4 (11:33→23:46)
--- NOTE | 2021-01-30 11:40 | NUR ---
A call from Griselda and at this time she was updated on pt's current condition as requested by pt's mother Ms. Montalvo.
--- NOTE | 2021-01-30 11:41 | NUR ---
Attending Josh Montalvo in the unit to follow up on pt. at this time a call to hand sign writer as requested and both of them discussed care plan.
--- NOTE | 2021-01-30 15:18 | NUR ---
Neurologist Dr. Garcia in the unit to see pt. report given.
[2021-01-30] MEDS ORDERED: MISCELLANEOUS MED XX PRN ×2 (16:15→17:00)
--- NOTE | 2021-01-30 17:00 | NUR ---
A call from Ms. Montalvo pt's mother requesting a call from ID physician for an update and discussion of lab results. Ms Montalvo informed that a call to will be called to remind him to update.
--- NOTE | 2021-01-30 17:02 | NUR ---
A call to Dr. Castorena ID to inform him of Ms. Montalvo's request to be called and be updated by him about lab and test results. As stated by . "I'm aware and yes I will call her for update"
--- NOTE | 2021-01-30 17:04 | NUR ---
Left pt. on ventilator A/C 16, tv 450, 30% FIO2, and PEEP +5 saturation of 96-98, no respiratory distress. Neuro-gustafson remains un-changed sleeping intermittently with cough and gag reflex present, trackin, and oriented to name and been able to node yes or no to close ended questions; DEBBI. BUE flacid but attempted to campus wellness coordinator upon assessment with severe weakness, Cardiac-gustafson on sinus bradycardia with lowest been 39 bpm non-sustained with sbp stable with no need of vasopressors. GI: tolerating NG feeding with zero residuals and at goal therapy. lieberman to gravity adequate I&O. Blanchable area to left ear clear. Will continue with care plan, and endorse to incoming shift.
[2021-01-30] MEDS: FLUCONAZOLE 400MG /NS 200ML IV 400 MG in PREMIXED 1 EACH IV SCH (17:24)
[2021-01-30] MEDS ORDERED: DEXTROSE 5% IV SCH (18:00)
[2021-01-30] MEDS ORDERED: ACYCLOVIR IV SCH (18:00)
--- NOTE | 2021-01-30 18:06 | NUR ---
A call from pt's mother Ms. Montalvo to inform nurses that "per Dr. Castorena's request to have a conference called between ID and Neurologist when neurologist rounds tomorrow 01/31/21". Ms. Montalvo left her number to be called at . Ms. Montalvo informed that this information will be endorse during report and will make sure day shift R.N. on duty on 01/31/21 will be informed of care plan.
--- NOTE | 2021-01-30 19:09 | NUR ---
Griselda in at 1900 when visiting finished at this time She's demanding to be let in for visit she was informed of visiting policies not only in person but also on the phone on her call to the unit earlier. She got upset and accused the undersignee to hang up the phone on her. And stated "when I get back you better have all the answers to my questions because none of your Dr's have called me to update me". shift engineer nurses updated on Griselda's request.
--- NOTE | 2021-01-30 19:45 | NUR ---
patient open eyes to name and spontaneously on her own . she makes eye contact and able to track . shes able to follow simple commands like blinking her eyes left arm able to moved and able to do light professor of family medicine while the right arm flaccid , bue with severe weakness no movement noted ,heels offloaded with pillows .
--- NOTE | 2021-01-30 20:15 | NUR ---
Griselda at bedside and talking to patient ,as per Griselda to tell the doctor to removed the tube so she can talk because she wants to talk .she said per family request to try to removed the ETT tube .
[2021-01-30] MEDS: HYDROCODONE/APAP 5-325MG TABLET PO PRN (20:20)
--- NOTE | 2021-01-30 20:29 | NUR ---
given [place] for pain patient able to blinks her eyes to pain and able to follow simple commands to simple commands
--- NOTE | 2021-01-30 20:30 | NUR ---
MARY talking to patient and she keeps saying she wants to talk and if we can removed the tube pointing to ETT and to just placed it back if needed ,i educated her that patient is not fully awake and is very weak and on and off goes back to sleep ,advised to wait for the collaborating supervising physician doctor and to come tomorrow and speak SHAVON GONZALEZ .
[2021-01-30] MEDS: NORMAL SALINE IV SCH (20:50)
[2021-01-30] MEDS: GANCICLOVIR SODIUM IV SCH (20:50)
--- NOTE | 2021-01-30 21:00 | NUR ---
MARY ,patient friend called and pointing on patients lower bilateral leg with scds on she said why shes on restraints ??? i told her its not a restraints its a compression device to help with circulation and to prevent from blood clots c/o patient is not moving and on bed rest .she mistaking taught scds is a restraints ,educated with restraints /scds and vent .
--- NOTE | 2021-01-30 21:02 | NUR ---
MARY still at b/s and asked for patient microbiology, send out test results and the MRI and xray results and wants copy i told her that we cannot give her a copy of any test unless the doctor is aware and with orders to release copy to family and since shes a friend the mother has to be the one to request it advised her to to come during the day so that her medical questions with be answered because most of her questions are doctors related issues and not nursing related questions .
--- NOTE | 2021-01-30 22:15 | NUR ---
turned and reposition patient . off loaded back with pillow and elevated upper and lower extremities with pillow .
[2021-01-30] MEDS: methylPREDNISolone SOD SUCC 1,000 MG in IV DEXTROSE 5% 250 ML IV SCH (23:46)
[2021-01-31] VITALS (23 sets, daily range): BP systolic 113–139; BP diastolic 59–78
[2021-01-31] MEDS: CEFTRIAXONE 2 G in IV DEXTROSE 5% 100 ML IV SCH (01:45)
--- NOTE | 2021-01-31 02:00 | NUR ---
turned and reposition patient due antibiotics given see emar .
[2021-01-31] MEDS: AMPICILLIN IV 2 G in IV NORMAL SALINE 100 ML IV SCH ×5 (02:52→18:38)
--- NOTE | 2021-01-31 03:00 | NUR ---
rounds made patient open eyes to name and able moved head from side to side . bue very weak and as well as bue no spontaneous movement.
--- NOTE | 2021-01-31 04:00 | NUR ---
am care done ,bath patient and chnaged osiled linens and gown, ett care done and oral care done .perineal care done patient with having her menstruation period with moderate amt of blood . apply sanitary pad.
[2021-01-31] MEDS: VANCOMYCIN IV 1,250 MG in IV DEXTROSE 5% 250 ML IV SCH ×2 (04:18→16:30)
[2021-01-31 05:24] LABS: HEMATOCRIT 28.2 % (31.2-41.9); MEAN CORPUSCULAR HEMOGLOBIN 29.3 uug (24.7-32.8); MEAN CORPUSCULAR VOLUME 87.3 fL (75.5-95.3); PLATELET COUNT (AUTO) 388 K/uL (179-408)
[2021-01-31 05:45] LABS: CREATININE 0.8 mg/dL (0.6-1.3); POTASSIUM 3.9 mmol/L (3.5-5.1)
[2021-01-31 05:48] LABS: BILIRUBIN,DIRECT 0.1 mg/dL (0.0-0.2); BILIRUBIN,TOTAL 0.4 mg/dL (0.2-1.0); CREATININE 0.8 mg/dL (0.6-1.3); MAGNESIUM 2.3 mg/dL (1.8-2.4); PHOSPHOROUS 2.5 mg/dL (2.5-4.9); POTASSIUM 3.7 mmol/L (3.5-5.1)
[2021-01-31] MEDS: PANTOPRAZOLE SODIUM 40 MG TABLET.DR PO SCH (06:01)
[2021-01-31 06:15] LABS: ABG BASE EXCESS 2.3 mmol/L; ABG HCO3 25.2 mmol/L; ABG PCO2 32.4 mmHg (35.0-45.0); ABG PH 7.508 (7.350-7.450); ABG PO2 85.6 mmHg (75.0-100.0); ABG SITE RIGHT RADIAL; ABG TOTAL HEMOGLOBIN 9.6 G/dL (12.0-16.0); COHb 0.9 % (0.5-1.5); MetHb 0.2 % (0.0-1.5); O2Hb 95.5 % (94.0-97.0); VENT MODE VENT - A/C; VT, ABG 450 mL
[2021-01-31 08:06] LABS: CRYPTOCOCCUS AB, SERUM Negative (Negative)
[2021-01-31] MEDS: BACLOFEN 10 MG TABLET PO SCH ×3 (08:09→17:14)
[2021-01-31] MEDS: ESCITALOPRAM OXALATE 10 MG TABLET PO SCH (08:09)
[2021-01-31] MEDS: GANCICLOVIR SODIUM IV SCH ×2 (08:12→19:50)
[2021-01-31] MEDS: ENOXAPARIN SODIUM 40 MG/0.4 ML DISP.SYRIN SQ SCH (08:12)
[2021-01-31] MEDS: NORMAL SALINE IV SCH ×2 (08:12→19:50)
[2021-01-31] MEDS: JEVITY 1.2 1000 ML LIQUID GT PRN (08:18)
[2021-01-31] MEDS: IV NORMAL SALINE 250 ML IV PRN (08:30)
[2021-01-31] MEDS: IV NS 1000 ML 1,000 ML IV PRN (08:30)
--- NOTE | 2021-01-31 08:35 | NUR ---
Cardio Dr. Banks in the unit to see and assess pt. full report given. MD aware of sinus bradycardia in the 40s and 50s. received verbal order to discontinue IV fluids.
--- NOTE | 2021-01-31 09:45 | NUR ---
received call from pt's mother Katia. given update on pt's condition. verified with Katia who the spokesperson for the pt is and per Katia, she is the closest next of kin and she is the spokesperson for the pt, however, she does try to include relative Griselda to conversations/updates because she has more knowledge and understanding of medical terminologies.
--- NOTE | 2021-01-31 10:15 | NUR ---
Tatiana Emery in the unit to see and assess pt. full report given.
[2021-01-31] MEDS: ACETAMINOPHEN 325 MG TABLET PO PRN (11:57)
--- NOTE | 2021-01-31 12:10 | NUR ---
received call from family relative Griselda. she was asking for ICD codes for pt's diagnosis for insurance so that they can approve for transfer. informed her that nurses do not handle ICD codes, told her that i can transfer call to admitting to see if they can help her. Griselda agreed and call transferred to admitting.
--- NOTE | 2021-01-31 15:06 | NUR ---
Left message for Dr. Garcia at around 1430 to follow up what time he will come see pt today and inform him that Dr. Castorena wanted to do conference call with ID and Neuro together with the pt's mother Katia. Received call back from Dr. Garcia at around 1450 saying he will be coming soon to see pt and to call pt's mother Katia to ask her what time she can come in person so he can talk to her in person. Called pt's mother Katia and she said she can try to be in the unit at around [phone]. Dr. Garcia informed and said he will come around that time.
[2021-01-31 15:32] LABS: *HSV 1/2 PCR 1DNA CSF Negative
[2021-01-31 15:33] LABS: *HSV 1/2 PCR 2DNA CSF Negative
--- NOTE | 2021-01-31 16:05 | NUR ---
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 OD GRINDER OPERATOR Katia Dietrich, ID Dr. Garcia and Neuro Dr. Castorena informed
--- NOTE | 2021-01-31 16:10 | NUR ---
there was plan to do conference call with Neuro Dr. Chase and ID Dr. Castorena along with pt's mother. pt's mother Katia came in person to the unit to visit. Dr. Chase and WEB SITE MANAGER Katia Dietrich are also present in person in the unit to talk to pt's mother about her condition. ID Dr. Castorena called on the telephone (placed on speaker) to discuss pt's condition with all of the above parties.
--- NOTE | 2021-01-31 16:50 | NUR ---
Infectious Disease Dr. Castorena in the unit to see pt. full report given. verified with MD if pt has to be on isolation for west nile virus and MD said no. supervisory it specialist aware. Also received order from Dr. Castorena to make sure stool culture was sent. called lab to clarify if a stool sample has been sent and per lab, no stool sample collected & sent yet. Informed Dr. Castorena that pt has not had bowel movement but will collect and send sample when pt has a BM. will also endorse to manufacturing shift supervisor.
[2021-01-31] MEDS: FLUCONAZOLE 400MG /NS 200ML IV 400 MG in PREMIXED 1 EACH IV SCH (17:25)
[2021-01-31 17:41] LABS: *AMPHETAMINE, URINE NEGATIVE (NEGATIVE); *CANNABINOID, URINE NEGATIVE (NEGATIVE); *COCCAINE, URINE NEGATIVE (NEGATIVE); *OPIATE, URINE POSITIVE (NEGATIVE); *PHENCYCLIDINE SCREEN,URINE NEGATIVE (NEGATIVE)
--- NOTE | 2021-01-31 17:55 | NUR ---
PT RECEIVED ORALLY INTUBATED WITH A SIZE 7.0 ETT SECURED APPROX. 21CM AT THE LIP. VENT PARAMETERS AND ALARMS CHECKED, ALARMS ARE AUDIBLE. PT IS ON A [place] VENT ON SETTINGS OF A/C 16, VT 450, 30%, PEEP +5. PT IS AWAKE, ALERT AND RESPONSIVE. PT IS TOLERATING VENT SETTINGS WELL. SPO2 AND RESPIRATIONS WNL, NO SIGNS OR SYMPTOMS OF RESP. DISTRESS NOTED. ORAL CARE DONE DURING SHIFT. SUCTION PRN. WILL CONTINUE TO MONITOR.
--- NOTE | 2021-01-31 18:10 | NUR ---
received order for PICC line placement. spoke to pt's mother Katia on the telephone to try and get consent. per Katia, she's scared of any procedures since pt is already weak. explained to Katia how PICC lines work and what they are for. per Katia, she would prefer to come tomorrow so the nurses can show it to her visually and explain in person. traffic sign supervisor aware to hold on picc line insertion while awaiting consent. will endorse to machinist 2nd shift to tell AM shift to follow up tomorrow
[2021-01-31] MEDS: MAGNESIUM HYDROXIDE 30 ML LIQUID UDC PO PRN (18:26)
--- NOTE | 2021-01-31 19:30 | NUR ---
rounds made patient in bed open spontaneously and eyes to name and able to moved head from side to side .bue and ble very weak and with generalized edema .turned and reposition patient .
[2021-01-31] MEDS: HYDROCODONE/APAP 5-325MG TABLET PO PRN (20:02)
--- NOTE | 2021-01-31 20:02 | NUR ---
noted patient with facial grimacing ,asked patient if shes in bed she nod head to yes in pain asked if its a severe pain she nodded head .given prn [place]
[2021-01-31 20:06] LABS: COCCIDIOIDES CF SERUM Negative (Neg:<1:2)
[2021-01-31] MEDS: IBUPROFEN 600 MG TABLET PO PRN (21:17)
--- NOTE | 2021-01-31 21:31 | NUR ---
patient mother called and updated with patient condition . patients mother wants to know if west Nile virus disease is contagious she said shes been reading via goggle .advised to speak with the doctors,she also want physical therapy to see patient . i told her i will endorsed it to the day shift .
[2021-01-31] MEDS: methylPREDNISolone SOD SUCC 1,000 MG in IV DEXTROSE 5% 250 ML IV SCH (21:43)
--- NOTE | 2021-01-31 22:00 | NUR ---
turned and reposition patient, changed soiled linens and gown .patient still have her monthly period ,perineal care done and changed sanitary pad patient had small bowel movement brownish in color send stool sample to lab .
[2021-02-01] VITALS (34 sets, daily range): BP systolic 90–138; BP diastolic 45–77
[2021-02-01] MEDS: AMPICILLIN IV 2 G in IV NORMAL SALINE 100 ML IV SCH ×7 (00:03→22:39)
--- NOTE | 2021-02-01 00:14 | NUR ---
PATIENT ON CONT PB 840 VENT WITH 7.0 ET/TUBE IN PLACE AND SECURED, WITH ANCHOR FAST, ROTATE Q2 HOURS, SUCTIONED VERY LIGHT PALE YELL TINGE SECRETIONS, AND ORAL CARE DONE, VENT SETTINGS CURRENT A/C 16, VT 460ML, PEEP5, 30%, PT DOES ASSIST AT TIMES, EYES OPENED AT TIMES, THEN FALLS ASLEEP, NO VENT CHANGES MADE. Stacia DELAROSAP Addendum: 02/01/21 at 0017 by ALVIN KIRKLAND RT Amended: Links added.
[2021-02-01] MEDS: CEFTRIAXONE 1 G in IV DEXTROSE 5% 50 ML IV SCH ×2 (01:13→15:00)
--- NOTE | 2021-02-01 02:00 | NUR ---
suction patient very minimal secretion via ETT and via mouth , tolerating TF Jevity at 60 ml/hr flushed ngt tube and continue with TF ,HOB UP .
--- NOTE | 2021-02-01 04:00 | NUR ---
am care done ,changed soiled linens and gown ,perineal care done .
[2021-02-01] MEDS: VANCOMYCIN IV 1,250 MG in IV DEXTROSE 5% 250 ML IV SCH ×2 (04:13→17:20)
[2021-02-01 05:15] LABS: HEMATOCRIT 26.8 % (31.2-41.9); MEAN CORPUSCULAR HEMOGLOBIN 29.9 uug (24.7-32.8); MEAN CORPUSCULAR VOLUME 87.7 fL (75.5-95.3); PLATELET COUNT (AUTO) 388 K/uL (179-408)
[2021-02-01 05:18] LABS: CREATININE 0.7 mg/dL (0.6-1.3); POTASSIUM 4.1 mmol/L (3.5-5.1)
[2021-02-01] MEDS: IBUPROFEN 600 MG TABLET PO PRN (06:03)
[2021-02-01] MEDS: PANTOPRAZOLE SODIUM 40 MG TABLET.DR PO SCH (06:04)
--- NOTE | 2021-02-01 07:32 | NUR ---
Pt received in bed, laying semi-Cnocepcion's, unable to communicate.. Orally intubated, ETT 7.[address] and secure with anchor fast.. Mechanical ventilation: settings A/C 16, Vt 450, PEEP +5, FiO2 30%, tolerating well, no changes made.. BVM at bedside.. Alarms on and audible.. Will continue to monitor..
--- NOTE | 2021-02-01 08:35 | NUR ---
Received authorization from Katia Wesley to give information to Tanya [facility] [phone]. Tanya is NOT to make medical or transport decisions but is allowed to get information about patient Dakotara Wesley.
[2021-02-01] MEDS: GANCICLOVIR SODIUM IV SCH ×2 (08:54→19:57)
[2021-02-01] MEDS: NORMAL SALINE IV SCH ×2 (08:54→19:57)
[2021-02-01] MEDS ORDERED: SULFAMETHOXAZOL/TRIMETHOPRI IV 20 ML in IV DEXTROSE 5% 500 ML IV ONE (09:00)
[2021-02-01] MEDS: ACETAMINOPHEN 325 MG TABLET PO PRN (09:46)
[2021-02-01] MEDS: ESCITALOPRAM OXALATE 10 MG TABLET PO SCH (09:46)
[2021-02-01] MEDS: BACLOFEN 10 MG TABLET PO SCH ×3 (09:46→17:19)
[2021-02-01] MEDS: ENOXAPARIN SODIUM 40 MG/0.4 ML DISP.SYRIN SQ SCH (09:47)
[2021-02-01] MEDS: CALCIUM CITRA-VITAMIN D 315 MG-250 UNITS TABLET PO SCH (09:48)
--- NOTE | 2021-02-01 10:35 | NUR ---
Contacted Katia Wesley, and consent was given for PICC line insertion. Witnessed by GARO Pierson.
[2021-02-01] MEDS ORDERED: FUROSEMIDE 40 MG/4 ML VIAL IV ONE (11:15)
--- NOTE | 2021-02-01 11:15 | NUR ---
attempt for Vital Capacity and RSBI.. VC 303, RSBI 81..
[2021-02-01] MEDS: HYDROCODONE/APAP 5-325MG TABLET PO PRN (12:20)
[2021-02-01] MEDS: FLUCONAZOLE 400MG /NS 200ML IV 400 MG in PREMIXED 1 EACH IV SCH (19:08)
[2021-02-01] MEDS: SULFAMETHOXAZOL/TRIMETHOPRI IV 20 ML in IV DEXTROSE 5% 500 ML IV SCH (20:43)
[2021-02-01] MEDS: methylPREDNISolone SOD SUCC 1,000 MG in IV DEXTROSE 5% 250 ML IV SCH (22:02)
[2021-02-01] MEDS: IV NORMAL SALINE 250 ML IV PRN (23:09)
[2021-02-02] VITALS (22 sets, daily range): BP systolic 96–137; BP diastolic 51–78
--- NOTE | 2021-02-02 00:05 | NUR ---
PATIENT ON CONT PB 840 VENT WITH 7.0 ET/TUBE IN PLACE AND SECURED, WITH ANCHOR FAST MOVE Q2, SUCTIONED VERY LIGHT PALE YELL TINGE SECRETIONS, AND SUCTION MOUTH GENTLY WITH STEVIE CHAN WELL, NO VENT CHANGES MADE, B/S EQUAL, GOOD LUNG AERATION, PT DOES OPEN HER EYES AT TIMES, DOES SLIGHTLY UNDERSTAND VERBAL COMMANDS, CHANGE HME, SAT 99%, VENT PLUGGED INTO RED OUT LET, AMBU BAG AT BEDSIDE.Stacia DELAROSAP Addendum: 02/02/21 at 0008 by ALVIN KIRKLAND RT Amended: Links added.
[2021-02-02] MEDS: IV NORMAL SALINE 250 ML IV PRN (00:44)
[2021-02-02] MEDS: CEFTRIAXONE 1 G in IV DEXTROSE 5% 50 ML IV SCH ×2 (01:27→15:12)
[2021-02-02] MEDS: AMPICILLIN IV 2 G in IV NORMAL SALINE 100 ML IV SCH ×6 (02:24→23:54)
[2021-02-02] MEDS: VANCOMYCIN IV 1,250 MG in IV DEXTROSE 5% 250 ML IV SCH (04:47)
[2021-02-02] MEDS: PANTOPRAZOLE SODIUM 40 MG TABLET.DR PO SCH (04:54)
[2021-02-02 05:10] LABS: HEMATOCRIT 27.7 % (31.2-41.9); MEAN CORPUSCULAR VOLUME 87.4 fL (75.5-95.3); PLATELET COUNT (AUTO) 386 K/uL (179-408)
[2021-02-02 05:19] LABS: CREATININE 0.7 mg/dL (0.6-1.3); POTASSIUM 3.7 mmol/L (3.5-5.1)
[2021-02-02 05:26] LABS: BILIRUBIN,DIRECT 0.1 mg/dL (0.0-0.2); BILIRUBIN,TOTAL 0.3 mg/dL (0.2-1.0); PHOSPHOROUS 3.1 mg/dL (2.5-4.9); TOTAL PROTEIN, SERUM 5.7 g/dL (6.4-8.2)
[2021-02-02] MEDS ORDERED: POTASSIUM CHLORIDE 20 MEQ POWDER PACKET GT ONE (07:30)
[2021-02-02] MEDS: ESCITALOPRAM OXALATE 10 MG TABLET PO SCH (08:32)
[2021-02-02] MEDS: GANCICLOVIR SODIUM IV SCH ×2 (08:32→21:09)
[2021-02-02] MEDS: NORMAL SALINE IV SCH ×2 (08:32→21:09)
[2021-02-02] MEDS: IBUPROFEN 600 MG TABLET PO PRN ×2 (08:32→16:14)
[2021-02-02] MEDS: CALCIUM CITRA-VITAMIN D 315 MG-250 UNITS TABLET PO SCH (08:33)
[2021-02-02] MEDS: BACLOFEN 10 MG TABLET PO SCH ×3 (08:33→17:55)
[2021-02-02] MEDS: ENOXAPARIN SODIUM 40 MG/0.4 ML DISP.SYRIN SQ SCH (08:42)
[2021-02-02] MEDS: PANTOPRAZOLE ORAL SUSPENSION 40 MG SUSPDR.PKT NG SCH (09:00)
[2021-02-02] MEDS: ALBUMIN HUMAN 25% 100 ML IV SCH ×4 (09:15→23:58)
[2021-02-02 09:20] LABS: ABG BASE EXCESS 5.7 mmol/L; ABG HCO3 28.3 mmol/L; ABG PCO2 33.8 mmHg (35.0-45.0); ABG PH 7.541 (7.350-7.450); ABG PO2 111.8 mmHg (75.0-100.0); ABG SITE RIGHT RADIAL; ABG TOTAL HEMOGLOBIN 10.1 G/dL (12.0-16.0); COHb 0.6 % (0.5-1.5); MetHb 0.2 % (0.0-1.5); O2Hb 97.4 % (94.0-97.0); VENT MODE VENT - A/C; VT, ABG 450 mL
[2021-02-02] MEDS: SULFAMETHOXAZOL/TRIMETHOPRI IV 20 ML in IV DEXTROSE 5% 500 ML IV SCH ×2 (09:43→21:10)
[2021-02-02] MEDS ORDERED: FUROSEMIDE 20 MG/2 ML VIAL IV ONE ×2 (10:00→16:00)
--- NOTE | 2021-02-02 14:30 | NUR ---
After being notified by [employer] that the patients mother was here to visit, this senior writer informed the corporate security manager that there is a lot going on and that the visitor must wait at least 30 minutes to come in. A second phone call received by [employer] and this senior writer notified guard to inform the mother that patient is fine, but we are extremely busy in the unit and must wait. Shortly after patients mother called the unit directly and was informed by this senior writer that patient is fine and it was extremely busy in the unit and that she must wait to come up. Shortly after that this senior writer received a phone call from patients acquaintance Tanya demanding to speak to this senior writer about the patient and Tanya was informed that she will be called back after it slows down in the unit but the patient is fine. Tanya became irate over the phone demanding to speak to someone, this senior writer stated that she can talk to the charge nurse on the 3rd floor and at this time this senior writer is unable to be further detained by the phone call. Tanya reassured that the patient is fine at this time. Emma THORNTON notified of occurrence and Katia Dietrich was in the unit and asked to call Tanya to speak to her.
[2021-02-02 16:07] LABS: *HCV QUANT Not Detected
[2021-02-02] MEDS: FLUCONAZOLE 400MG /NS 200ML IV 400 MG in PREMIXED 1 EACH IV SCH (17:55)
--- NOTE | 2021-02-02 19:30 | NUR ---
ROUNDS MADE PATIENT IN BED ,TOLERATING VENT SETTING SATURATION 99 % RR 16 TO 17,PATIENT OPEN EYES TO NAME AND ABLE TO NOD HEAD TO YES AND NO QUESTION .PATIENT UNABLE TO MOVED BILATERAL UPPER AND LOWER EXTREMITIES,UNABLE TO SQUEEZED . EXTREMITIES VERY FLACCID AND WITH SEVERE WEAKNESS . NGT TF IN PROGRESS FLUSHED TUBE PATENT .
--- NOTE | 2021-02-02 20:30 | NUR ---
TURNED AND REPOSITION PATIENT OFF LOADED BACK WITH PILLOWS AND HEELS OFF THE BED .SCDS USED TO BILATERAL LOWER EXTREMITIES .
[2021-02-02] MEDS: methylPREDNISolone SOD SUCC 1,000 MG in IV DEXTROSE 5% 250 ML IV SCH (22:36)
[2021-02-02] MEDS: HYDROCODONE/APAP 5-325MG TABLET PO PRN (22:41)
--- NOTE | 2021-02-02 22:41 | NUR ---
PATIENT NOD HEAD TO YES ON PAIN GIVEN NORCO VIA THE NGT .
[2021-02-03] VITALS (24 sets, daily range): BP systolic 102–145; BP diastolic 37–73
[2021-02-03] MEDS: TEMAZEPAM 7.5 MG CAPSULE PO PRN (01:51)
[2021-02-03] MEDS: CEFTRIAXONE 1 G in IV DEXTROSE 5% 50 ML IV SCH ×2 (01:52→13:47)
[2021-02-03] MEDS: AMPICILLIN IV 2 G in IV NORMAL SALINE 100 ML IV SCH ×6 (03:26→23:52)
[2021-02-03 05:36] LABS: HEMATOCRIT 24.4 % (31.2-41.9); MEAN CORPUSCULAR HEMOGLOBIN 30.3 uug (24.7-32.8); MEAN CORPUSCULAR VOLUME 87.4 fL (75.5-95.3); PLATELET COUNT (AUTO) 346 K/uL (179-408)
[2021-02-03 05:41] LABS: CREATININE 0.8 mg/dL (0.6-1.3)
[2021-02-03 06:04] LABS: ABG BASE EXCESS 3.9 mmol/L; ABG HCO3 26.5 mmol/L; ABG PCO2 32.3 mmHg (35.0-45.0); ABG PH 7.532 (7.350-7.450); ABG PO2 102.6 mmHg (75.0-100.0); ABG SITE LEFT RADIAL; ABG TOTAL HEMOGLOBIN 9.1 G/dL (12.0-16.0); COHb 0.9 % (0.5-1.5); MetHb 0.4 % (0.0-1.5); O2Hb 96.6 % (94.0-97.0); VENT MODE VENT - A/C; VT, ABG 450 mL
[2021-02-03] MEDS: NORMAL SALINE IV SCH ×2 (07:54→20:21)
[2021-02-03] MEDS: GANCICLOVIR SODIUM IV SCH ×2 (07:54→20:21)
[2021-02-03] MEDS: JEVITY 1.2 1000 ML LIQUID GT PRN (08:05)
[2021-02-03] MEDS: ESCITALOPRAM OXALATE 10 MG TABLET PO SCH (08:05)
[2021-02-03] MEDS: BACLOFEN 10 MG TABLET PO SCH ×3 (08:05→16:58)
[2021-02-03] MEDS: PANTOPRAZOLE ORAL SUSPENSION 40 MG SUSPDR.PKT NG SCH (08:05)
[2021-02-03] MEDS: ENOXAPARIN SODIUM 40 MG/0.4 ML DISP.SYRIN SQ SCH (08:07)
[2021-02-03] MEDS: CALCIUM CITRA-VITAMIN D 315 MG-250 UNITS TABLET PO SCH (08:09)
[2021-02-03] MEDS: SULFAMETHOXAZOL/TRIMETHOPRI IV 20 ML in IV DEXTROSE 5% 500 ML IV SCH ×2 (08:52→21:31)
--- NOTE | 2021-02-03 09:54 | NUR ---
NIF 35, RSVI 40, FVC 0.5L cont same test daily. per Dr. Emery Addendum: 02/03/21 at 1003 by RONN MONTELONGO RT NIF 35, RSVI 40, FVC 0.5L cont same test daily. per Dr. Emery Addendum: 02/03/21 at 1003 by RONN MONTELONGO RT NIF 35, RSBI 40, FVC 0.5L cont same test daily. per Dr. Emery
--- NOTE | 2021-02-03 10:28 | NUR ---
Dr. Emery with orders for respiratory to check FVC, NIF, & RSBI on NO ventilator support daily.
[2021-02-03] MEDS: IBUPROFEN 600 MG TABLET PO PRN (11:59)
--- NOTE | 2021-02-03 12:22 | NUR ---
Mother (Katia) & friend (Tanya) inquiring about patient - updated on patients status
[2021-02-03] MEDS: IV NORMAL SALINE 250 ML IV PRN (15:38)
[2021-02-03] MEDS: FLUCONAZOLE 400MG /NS 200ML IV 400 MG in PREMIXED 1 EACH IV SCH (17:00)
[2021-02-03] MEDS: HYDROCODONE/APAP 5-325MG TABLET PO PRN (18:04)
--- NOTE | 2021-02-03 18:19 | NUR ---
Nursing note from 01/24 @ 1400 states "patient saying some body give her poison at home". Katia Dietrich made aware, social work administrator consult ordered. Given the nature of this patients illness, i felt it was warranted to bring up, and it be looked into.
--- NOTE | 2021-02-03 18:32 | NUR ---
Patient more alert & awake. Strength in L > R in upper extremities + able to wiggle toes in [place] lower extremities. Foot drop noted in left foot. Left eye does not react/reacts very sluggishly to light. Brisk response in right. Able to make needs known nonverbally. Sinus Rhythm + sinus staci when sleeping. BPs stable w/o need for pressor support. Feels warm to touch but no temperature greater than 99.2. Saturations >94%. No sob. Shows improvement in cpap trials done in am. GI/: No bowel movement. Tolerating tube feedings. 1850cc clear + yellow urine output. Misc: networker consult ordered (see previous note). Addendum: 02/04/21 at 0950 by SHIRA VAN RN weaning trials*
[2021-02-03] MEDS ORDERED: CALCIUM GLUCONATE IV 1 GM in IV NORMAL SALINE 100 ML IV ONE (23:00)
[2021-02-04] VITALS (24 sets, daily range): BP systolic 101–136; BP diastolic 50–74
[2021-02-04] MEDS: HYDROCODONE/APAP 5-325MG TABLET PO PRN (00:19)
[2021-02-04] MEDS: TEMAZEPAM 7.5 MG CAPSULE PO PRN (00:19)
[2021-02-04] MEDS: CEFTRIAXONE 1 G in IV DEXTROSE 5% 50 ML IV SCH ×2 (02:20→14:17)
[2021-02-04] MEDS: AMPICILLIN IV 2 G in IV NORMAL SALINE 100 ML IV SCH ×6 (02:26→23:17)
[2021-02-04] MEDS: MAGNESIUM HYDROXIDE 30 ML LIQUID UDC PO PRN (03:36)
[2021-02-04 05:29] LABS: MEAN CORPUSCULAR HEMOGLOBIN 30.1 uug (24.7-32.8); MEAN CORPUSCULAR VOLUME 87.6 fL (75.5-95.3); PLATELET COUNT (AUTO) 359 K/uL (179-408)
[2021-02-04 05:37] LABS: CREATININE 0.7 mg/dL (0.6-1.3); POTASSIUM 4.3 mmol/L (3.5-5.1)
[2021-02-04 06:08] LABS: MAGNESIUM 2.3 mg/dL (1.8-2.4); PHOSPHOROUS 3.8 mg/dL (2.5-4.9)
[2021-02-04 06:15] LABS: ABG BASE EXCESS 3.7 mmol/L; ABG HCO3 27.2 mmol/L; ABG PCO2 36.7 mmHg (35.0-45.0); ABG PH 7.488 (7.350-7.450); ABG SITE RIGHT RADIAL; ABG TOTAL HEMOGLOBIN 9.6 G/dL (12.0-16.0); COHb 0.7 % (0.5-1.5); MetHb 0.5 % (0.0-1.5); O2Hb 97.2 % (94.0-97.0); VENT MODE VENT - A/C; VT, ABG 450 mL
--- NOTE | 2021-02-04 07:40 | NUR ---
REMAINS ON CONTINUOUS MECHANICAL VENTILATION WITH SAME ORDERED SETTINGS. NO CHANGES MADE AT THIS TIME. NO S/S OF RESPIRATORY DISTRESS NOTED AT THIS TIME. ORALLY INTUBATED WITH 7.0 ETT APPROXIMATELY 21CM AT THE LIP. ETT REPOSITIONED NEEDED. ORAL CARE DONE. SUCTION PRN. HME CHANGED. VENT ALARMS CHECKED, ARE ON AND AUDIBLE. WILL CONTINUE TO MONITOR.
[2021-02-04] MEDS: NORMAL SALINE IV SCH ×2 (08:04→20:23)
[2021-02-04] MEDS: GANCICLOVIR SODIUM IV SCH ×2 (08:04→20:23)
[2021-02-04] MEDS: BACLOFEN 10 MG TABLET PO SCH ×3 (08:15→17:17)
[2021-02-04] MEDS: PANTOPRAZOLE ORAL SUSPENSION 40 MG SUSPDR.PKT NG SCH (08:15)
[2021-02-04] MEDS: ESCITALOPRAM OXALATE 10 MG TABLET PO SCH (08:15)
[2021-02-04] MEDS: ENOXAPARIN SODIUM 40 MG/0.4 ML DISP.SYRIN SQ SCH (08:17)
[2021-02-04] MEDS: SULFAMETHOXAZOL/TRIMETHOPRI IV 20 ML in IV DEXTROSE 5% 500 ML IV SCH ×2 (08:29→21:25)
[2021-02-04] MEDS: CALCIUM CITRA-VITAMIN D 315 MG-250 UNITS TABLET PO SCH (08:31)
--- NOTE | 2021-02-04 09:30 | NUR ---
WEANING MEASUREMENTS - FVC: 558, NIF: 29, RSBI: 40. RESULTS GIVEN TO DR. GONZALEZ.
[2021-02-04] MEDS: IBUPROFEN 600 MG TABLET PO PRN (10:39)
[2021-02-04] MEDS: JEVITY 1.2 1000 ML LIQUID GT PRN (11:13)
--- NOTE | 2021-02-04 14:59 | NUR ---
OVA & Parasite specimen was sent out - pending results - Per Roxy from lab
[2021-02-04] MEDS: FLUCONAZOLE 400MG /NS 200ML IV 400 MG in PREMIXED 1 EACH IV SCH (17:17)
--- NOTE | 2021-02-04 19:13 | NUR ---
PT RECEIVED ON CONT. MECHANICAL VENT WITH ORDERED SETTINGS AND MULU WELL. PT IS INTUBATED WITH SIZE 7.0 ETT APPROX 21cm AT THE LIP. ETT ALSO REPOSITIONED Q2HRS. PRN SXN PROVIDED. ALARMS ON AND AUDIBLE. VENTILATOR PLUGGED IN AT RED OUTLETS. AMBUBAG @ BEDSIDE. WILL CONTINUE TO MONITOR THROUGHOUT SHIFT.
[2021-02-05] VITALS (24 sets, daily range): BP systolic 92–127; BP diastolic 49–85
[2021-02-05] MEDS: MAGNESIUM HYDROXIDE 30 ML LIQUID UDC PO PRN (00:21)
[2021-02-05] MEDS: CEFTRIAXONE 1 G in IV DEXTROSE 5% 50 ML IV SCH ×2 (01:26→13:46)
[2021-02-05] MEDS: AMPICILLIN IV 2 G in IV NORMAL SALINE 100 ML IV SCH ×6 (02:47→23:32)
[2021-02-05 05:20] LABS: HEMATOCRIT 28.8 % (31.2-41.9); MEAN CORPUSCULAR VOLUME 88.6 fL (75.5-95.3); PLATELET COUNT (AUTO) 369 K/uL (179-408)
[2021-02-05 05:29] LABS: CREATININE 0.7 mg/dL (0.6-1.3); MAGNESIUM 2.2 mg/dL (1.8-2.4); POTASSIUM 4.6 mmol/L (3.5-5.1)
[2021-02-05] MEDS: IV NORMAL SALINE 250 ML IV PRN (07:43)
[2021-02-05] MEDS: NORMAL SALINE IV SCH ×2 (07:46→20:21)
[2021-02-05] MEDS: GANCICLOVIR SODIUM IV SCH ×2 (07:46→20:21)
[2021-02-05 07:49] LABS: ABG BASE EXCESS 5.3 mmol/L; ABG HCO3 28.3 mmol/L; ABG PCO2 35.2 mmHg (35.0-45.0); ABG PH 7.523 (7.350-7.450); ABG PO2 130.8 mmHg (75.0-100.0); ABG SITE RIGHT RADIAL; ABG TOTAL HEMOGLOBIN 10.2 G/dL (12.0-16.0); COHb 0.7 % (0.5-1.5); MetHb 0.4 % (0.0-1.5); O2Hb 97.6 % (94.0-97.0); VENT MODE VENT - A/C; VT, ABG 450 mL
[2021-02-05] MEDS: BACLOFEN 10 MG TABLET PO SCH ×3 (08:07→17:43)
[2021-02-05] MEDS: ESCITALOPRAM OXALATE 10 MG TABLET PO SCH (08:07)
[2021-02-05] MEDS: PANTOPRAZOLE ORAL SUSPENSION 40 MG SUSPDR.PKT NG SCH (08:07)
[2021-02-05] MEDS: ACETAMINOPHEN 325 MG TABLET PO PRN (08:07)
[2021-02-05] MEDS: CALCIUM CITRA-VITAMIN D 315 MG-250 UNITS TABLET PO SCH (08:08)
[2021-02-05] MEDS: ENOXAPARIN SODIUM 40 MG/0.4 ML DISP.SYRIN SQ SCH (08:16)
[2021-02-05] MEDS: JEVITY 1.2 1000 ML LIQUID GT PRN (08:18)
--- NOTE | 2021-02-05 08:45 | NUR ---
A call from pt's mother and at this time she was updated on care plan.
--- NOTE | 2021-02-05 09:04 | NUR ---
Received pt. AAOx1 no c/of pain. Hemodynamically stable with sbp within desired limits. Remains on ventilator on A/C of 16, Tv 450, FIO2 30%, and Peep +5. no distress. NG tube clamped. : lieberman to gravity with adequate out-put. PICC line to RUE patent. Skin over all clear of pressure. Will continue with care plan.
[2021-02-05] MEDS: SULFAMETHOXAZOL/TRIMETHOPRI IV 20 ML in IV DEXTROSE 5% 500 ML IV SCH ×2 (09:06→20:19)
--- NOTE | 2021-02-05 09:16 | NUR ---
Patient seen by REZA Tony
--- NOTE | 2021-02-05 10:30 | NUR ---
Attending Josh Dietrich in the unit to see and examine pt. report given .
--- NOTE | 2021-02-05 11:45 | NUR ---
A 2nd call from pt's mother and this time Billy Jeffery took the call and as stated by Blily pt's mother inquire for poison test results.
[2021-02-05] MEDS: FLUCONAZOLE 400MG /NS 200ML IV 400 MG in PREMIXED 1 EACH IV SCH (17:42)
--- NOTE | 2021-02-05 18:51 | NUR ---
left sleeping intermittently. AAOx1 no c/of pain. Hemodynamically stable with sbp within desired limits. Remains on ventilator on A/C of 16, Tv 450, FIO2 30%, and Peep +5. no distress. NG tube to goal feeding with no residuals, n/v/d/.. : lieberman to gravity with adequate out-put. PICC line to RUE patent. Skin over all clear of pressure. Will endorse to incoming shift. .
--- NOTE | 2021-02-05 19:00 | NUR ---
received patient able to follow command right hand is weaker with no fiberglass roving winder than the left , ac 16 30 %fio2 p5 tv 450 , jevity 1.2 running at 60 ml , via ngt , placement checked , no residual noted , lieberman and iv intact , no fever , bradycardic at 50 s
--- NOTE | 2021-02-05 20:30 | NUR ---
mother is at bedside
[2021-02-06] VITALS (25 sets, daily range): BP systolic 79–129; BP diastolic 43–79
[2021-02-06] MEDS: CEFTRIAXONE 1 G in IV DEXTROSE 5% 50 ML IV SCH ×2 (01:30→14:09)
[2021-02-06] MEDS: AMPICILLIN IV 2 G in IV NORMAL SALINE 100 ML IV SCH ×6 (02:19→23:22)
[2021-02-06 05:01] LABS: HEMATOCRIT 28.6 % (31.2-41.9); MEAN CORPUSCULAR HEMOGLOBIN 29.4 uug (24.7-32.8); PLATELET COUNT (AUTO) 349 K/uL (179-408)
[2021-02-06 05:06] LABS: CREATININE 0.6 mg/dL (0.6-1.3); POTASSIUM 4.5 mmol/L (3.5-5.1)
[2021-02-06 05:09] LABS: MAGNESIUM 2.1 mg/dL (1.8-2.4); PHOSPHOROUS 4.3 mg/dL (2.5-4.9)
--- NOTE | 2021-02-06 05:50 | NUR ---
* Maintains patent airway * Evidences no adventitious breath sounds * Maintains vital signs WNL Addendum: 02/06/21 at 0551 by JEN LUGO RN Amended: Loreta added. Addendum: 02/06/21 at 0551 by JEN LUGO RN Amended: Loreta added. Addendum: 02/06/21 at 0552 by JEN LUGO RN Amended: Links added.
--- NOTE | 2021-02-06 05:51 | NUR ---
* Exhibits granulation/healing at site * Exhibits decreased drainage at site * Exhibits no s/s of infection * Exhibits a decrease in lesion size * Maintains nutritional status * Maintains hydration status * Maintains optimal lab values Addendum: 02/06/21 at 0551 by JEN LUGO RN Amended: Links added. Addendum: 02/06/21 at 0552 by JEN LUGO RN Amended: Links deepali.
--- NOTE | 2021-02-06 05:52 | NUR ---
* Maintains an alert level of consciousness * Maintains or increases Vashti Coma Score * Maintains vital signs WNL * Evidences decreases or no seizure activity Addendum: 02/06/21 at 0552 by JEN LUGO RN Amended: Links added.
--- NOTE | 2021-02-06 06:00 | NUR ---
sleeping soundly , easily arousable , able to understand simple command , ngt placement check and verified , no residual , held for order x 22 hours tf , same vent settings , luisana campa ,, iv intact on barney, sr at 63
[2021-02-06] MEDS: ACETAMINOPHEN 325 MG TABLET PO PRN (06:28)
[2021-02-06] MEDS: GANCICLOVIR SODIUM IV SCH ×2 (07:38→20:03)
[2021-02-06] MEDS: NORMAL SALINE IV SCH ×2 (07:38→20:03)
[2021-02-06] MEDS: CALCIUM CITRA-VITAMIN D 315 MG-250 UNITS TABLET PO SCH (07:55)
[2021-02-06] MEDS: PANTOPRAZOLE ORAL SUSPENSION 40 MG SUSPDR.PKT NG SCH (07:55)
[2021-02-06] MEDS: SULFAMETHOXAZOL/TRIMETHOPRI IV 20 ML in IV DEXTROSE 5% 500 ML IV SCH ×2 (07:55→20:58)
[2021-02-06] MEDS: ESCITALOPRAM OXALATE 10 MG TABLET PO SCH (07:55)
[2021-02-06] MEDS: BACLOFEN 10 MG TABLET PO SCH ×3 (07:55→16:57)
[2021-02-06] MEDS: ENOXAPARIN SODIUM 40 MG/0.4 ML DISP.SYRIN SQ SCH (07:56)
--- NOTE | 2021-02-06 08:25 | NUR ---
Old NGT clogged at the tip - new one inserted - STAT KUB ordered
--- NOTE | 2021-02-06 09:00 | NUR ---
WEANING MEASUREMENTS - FVC: 659, NIF: 20, RSBI: 51 .
--- NOTE | 2021-02-06 10:45 | NUR ---
Patient receiving PT - strength has improved across the board
[2021-02-06] MEDS: IBUPROFEN 600 MG TABLET PO PRN (10:55)
[2021-02-06] MEDS: JEVITY 1.2 1000 ML LIQUID GT PRN (14:35)
[2021-02-06] MEDS: FLUCONAZOLE 400MG /NS 200ML IV 400 MG in PREMIXED 1 EACH IV SCH (17:46)
--- NOTE | 2021-02-06 18:35 | NUR ---
Patient still alert and able to communicate non-verbally. Shakes head no for no apparent reason at times. Strength in LUE > RUE. Able to wiggle toes and was able to push with increased strength against resistance during PT bilaterally. Sinus rhythm + sinus staci. BPs lower than usual but still within acceptable ranges. 99.0 temperature at 1800. No respiratory issues. Vent weaning in progress. minimal secretions. GI/: 2400cc clear yellow urine output. No bowel movement. Tolerating tube feedings adequately.
--- NOTE | 2021-02-06 19:15 | NUR ---
received patient awake , able to follow simple command , , ngt placement checked , and no residual noted , no fever , sinus staci at 50"s , vent setting ac 16 tv 450 p5 30 fio2 % , iv intact , lieberman draining yellow color
[2021-02-06] MEDS ORDERED: NOREPINEPHRINE BITARTRATE 4 MG/4 ML VIAL IV ONE (22:15)
--- NOTE | 2021-02-06 22:37 | NUR ---
levophed started at 0.1 mcg , blood pressure sustaining at low 80 "s , sleeping easily arousable
--- NOTE | 2021-02-06 23:30 | NUR ---
levophed was decreased to 0.01 mcg due to able to maintain blood pressure goal
--- NOTE | 2021-02-06 23:41 | NUR ---
PATIENT ON CONT PB 840 VENT WITH 7.0 ET/TUBE IN PLACE AND SECURED, WITH ANCHOR FAST IN PLACE AND MOVE Q2, SUCTIONED LIGHT PALE YELL TINGE SECRETIONS, CHECK CUFF, CHANGE HME, ORAL CARE, ALL VENT ALARMS GOOD, NO VENT CHANGES MADE, SAT 99- 100%, PT DOES ASSIST AT TIMES, DOES OPEN HER EYES AT TIMES, AND UNDERSTANDS VERBAL COMMANDS . Stacia KIRKLAND RCP Addendum: 02/06/21 at 2344 by ALVIN KIRKLAND RT Amended: Links added.
[2021-02-07] VITALS (35 sets, daily range): BP systolic 82–116; BP diastolic 47–79
[2021-02-07] MEDS: TEMAZEPAM 7.5 MG CAPSULE PO PRN (01:51)
[2021-02-07] MEDS: CEFTRIAXONE 1 G in IV DEXTROSE 5% 50 ML IV SCH ×2 (01:52→14:20)
--- NOTE | 2021-02-07 02:19 | NUR ---
* Exhibits granulation/healing at site * Exhibits decreased drainage at site * Exhibits no s/s of infection * Exhibits a decrease in lesion size * Maintains nutritional status Addendum: 02/07/21 at 219 by JEN LUGO RN Amended: Loreta added. Addendum: 02/07/21 at 219 by JEN LUGO RN Amended: Links added. Addendum: 02/07/21 at 219 by JEN LUGO RN Amended: Links added.
--- NOTE | 2021-02-07 02:19 | NUR ---
* Identifies controllable stressors * Identifies sources of support * Identifies activities for which assistance is needed * Increases ability to cope with caregiving * Seeks respite and short term relief services Addendum: 02/07/21 at 218 by JEN LUGO RN Amended: Loreta added. Addendum: 02/07/21 at 218 by JEN LUGO RN Amended: Links added. Addendum: 02/07/21 at 0220 by JEN LUGO RN Amended: Links added. Addendum: 02/07/21 at 0220 by JEN LUGO RN Amended: Links added. Addendum: 02/07/21 at 0220 by JEN LUGO RN Amended: Links added.
--- NOTE | 2021-02-07 02:19 | NUR ---
-Nutritional intake meets > or = 75% of nutrition needs Addendum: 02/07/21 at 0219 by JEN LUGO RN Amended: Loreta palumbo. Addendum: 02/07/21 at 219 by JEN LUGO RN Amended: Loreta palumbo. Addendum: 02/07/21 at 0220 by JEN LUGO RN Amended: Links added. Addendum: 02/07/21 at 0220 by JEN LUGO RN Amended: Links added.
--- NOTE | 2021-02-07 02:20 | NUR ---
* Understands adequate fluid intake * Maintains vital signs WNL * Maintains optimal electrolyte values * Maintains balanced intake and output * Maintains BUN and Hct WN Addendum: 02/07/21 at 0220 by JEN LUGO RN Amended: Links added.
--- NOTE | 2021-02-07 02:20 | NUR ---
* Maintains vital signs WNL * Evidences no purulent drainage from wounds, incisions, and tubes * Maintains lab values WNL Addendum: 02/07/21 at 0 by JEN LUGO RN Amended: Links added. Addendum: 02/07/21 at 219 by JEN LUGO RN Amended: Links added.
[2021-02-07] MEDS: AMPICILLIN IV 2 G in IV NORMAL SALINE 100 ML IV SCH ×6 (02:26→23:13)
--- NOTE | 2021-02-07 03:00 | NUR ---
levophed was ncreased to 0.03 mcg to maintain goal of blood pressure > 90
--- NOTE | 2021-02-07 06:02 | NUR ---
awake able to communicate and follow simple command by nodding and weak hand gip , tf was off and clamped for order x 22 hours of tf , ngt , placement checked and verified , and no residual noted lieberman draining , picc ine intact , no fever, sbp of 109 /69 at 0.03 mcg of levophed hr at 68 , 100 on current vent settings
[2021-02-07] MEDS: GANCICLOVIR SODIUM IV SCH ×2 (08:11→19:54)
[2021-02-07] MEDS: NORMAL SALINE IV SCH ×2 (08:11→19:54)
--- NOTE | 2021-02-07 08:22 | NUR ---
PT RECEIVED AWAKE ALERT AND RESPONSIVE. PT ABLE TO FOLLOW SIMPLE COMMANDS. WEANING MEASUREMENTS WERE TAKEN WITH GOOD PATIENT EFFORT. WEANING MEASUREMENTS - FVC: 644, NIF: 20, RSBI: 43 (VALUES TAKEN WITHOUT PRESSURE SUPPORT OR PEEP)
[2021-02-07] MEDS: SULFAMETHOXAZOL/TRIMETHOPRI IV 20 ML in IV DEXTROSE 5% 500 ML IV SCH ×2 (08:42→21:08)
[2021-02-07] MEDS: BACLOFEN 10 MG TABLET PO SCH ×3 (08:45→17:37)
[2021-02-07] MEDS ORDERED: IV NORMAL SALINE 500 ML IV ONE (08:45)
[2021-02-07] MEDS: ESCITALOPRAM OXALATE 10 MG TABLET PO SCH (08:45)
[2021-02-07] MEDS: PANTOPRAZOLE ORAL SUSPENSION 40 MG SUSPDR.PKT NG SCH (08:46)
[2021-02-07] MEDS: ENOXAPARIN SODIUM 40 MG/0.4 ML DISP.SYRIN SQ SCH (08:47)
[2021-02-07] MEDS: CALCIUM CITRA-VITAMIN D 315 MG-250 UNITS TABLET PO SCH (08:48)
[2021-02-07 08:58] LABS: HEMATOCRIT 30.2 % (31.2-41.9); MEAN CORPUSCULAR HEMOGLOBIN 29.7 uug (24.7-32.8); MEAN CORPUSCULAR VOLUME 88.1 fL (75.5-95.3); PLATELET COUNT (AUTO) 370 K/uL (179-408)
[2021-02-07 09:10] LABS: BILIRUBIN,TOTAL 0.4 mg/dL (0.2-1.0); CREATININE 0.7 mg/dL (0.6-1.3); POTASSIUM 4.5 mmol/L (3.5-5.1); TOTAL PROTEIN, SERUM 6.1 g/dL (6.4-8.2)
[2021-02-07] MEDS: ACIDOPHILUS/BULGARICUS CHEW TAB NG SCH ×2 (11:00→21:09)
[2021-02-07] MEDS: HYDROCODONE/APAP 5-325MG TABLET PO PRN (11:02)
--- NOTE | 2021-02-07 12:45 | NUR ---
ID in the unit Dr. Castorena to see patient. Called lad for follow up on results on CSF specifically for [place]. Lab to call for any updated results.
--- NOTE | 2021-02-07 14:44 | NUR ---
lab returned call and informed me that [place] was never ran for CSF because it was added later and there was not enough specimen anymore to run that test. One of the nurse practioners from OR was informed of this.
--- NOTE | 2021-02-07 15:27 | NUR ---
Dr. Bermudez reviewed weaning results NIF low and will wait for tomorrow readings to make any changes to vent.
[2021-02-07] MEDS: FLUCONAZOLE 400MG /NS 200ML IV 400 MG in PREMIXED 1 EACH IV SCH (17:37)
[2021-02-07] MEDS ORDERED: MAGNESIUM CITRATE 296 ML BOTTLE GT ONE (19:00)
--- NOTE | 2021-02-07 19:30 | NUR ---
Report received. Patient with oral ETT to vent settings: AC=16, FIo2=30%, AT=843up and PEEP=5 cm. O2 saturations above 96%. Eyes open able to follow commands but patient shakes head right and left to all questions. HOB elevated above 30 degrees at all times. NGT feedings at 60 ml/H; tolerated well. Mag Citrate given via NGT as ordered. Assessment completed.
--- NOTE | 2021-02-07 22:00 | NUR ---
Had a large soft brown BM. PM care rendered. Skin care provided.
[2021-02-08] VITALS (24 sets, daily range): BP systolic 82–120; BP diastolic 51–73
[2021-02-08] MEDS: CEFTRIAXONE 1 G in IV DEXTROSE 5% 50 ML IV SCH ×2 (02:10→14:12)
[2021-02-08] MEDS: AMPICILLIN IV 2 G in IV NORMAL SALINE 100 ML IV SCH ×6 (03:00→23:18)
[2021-02-08 05:07] LABS: HEMATOCRIT 30.3 % (31.2-41.9); MEAN CORPUSCULAR VOLUME 88.9 fL (75.5-95.3); PLATELET COUNT (AUTO) 327 K/uL (179-408)
[2021-02-08 05:24] LABS: CREATININE 0.6 mg/dL (0.6-1.3); PHOSPHOROUS 3.1 mg/dL (2.5-4.9); POTASSIUM 4.8 mmol/L (3.5-5.1)
--- NOTE | 2021-02-08 05:36 | NUR ---
Pt is on ventilator settings of A/C 16, VT 450, FIO2-30% and PEEP+5. No resp. distress noted. 7.0 ETT is patent and secure at approximately 21am at the lip. BVM is is at bedside. Pt has been routinely sx'd. Ventilator alarm parameters have been checked and reset.
--- NOTE | 2021-02-08 06:30 | NUR ---
No neuro changes. equipment maintenance engineer SB-SR, BPs stable. Comfortable on current vent settings. O2 saturations remain above 96%. Diuresed well. Tolerating NGT feedings at 60 ml/H x 22H; off [id number].
[2021-02-08] MEDS: NORMAL SALINE IV SCH ×2 (07:34→20:18)
[2021-02-08] MEDS: GANCICLOVIR SODIUM IV SCH ×2 (07:34→20:18)
[2021-02-08] MEDS ORDERED: IV NORMAL SALINE 1000 ML BAG IV PRN (08:00)
--- NOTE | 2021-02-08 08:12 | NUR ---
PT RECEIVED AWAKE ALERT AND RESPONSIVE. PT ABLE TO FOLLOW SIMPLE COMMANDS. WEANING MEASUREMENTS WERE TAKEN WITH GOOD PATIENT EFFORT. WEANING MEASUREMENTS - FVC: 842, NIF: 30, RSBI: 50 (VALUES TAKEN WITHOUT PRESSURE SUPPORT OR PEEP)
[2021-02-08] MEDS: ACIDOPHILUS/BULGARICUS CHEW TAB NG SCH ×2 (08:20→21:26)
[2021-02-08] MEDS: ESCITALOPRAM OXALATE 10 MG TABLET PO SCH (08:20)
[2021-02-08] MEDS: PANTOPRAZOLE ORAL SUSPENSION 40 MG SUSPDR.PKT NG SCH (08:20)
[2021-02-08] MEDS: BACLOFEN 10 MG TABLET PO SCH ×2 (08:20→12:42)
[2021-02-08] MEDS: CALCIUM CITRA-VITAMIN D 315 MG-250 UNITS TABLET PO SCH (08:21)
[2021-02-08] MEDS: ENOXAPARIN SODIUM 40 MG/0.4 ML DISP.SYRIN SQ SCH (08:22)
[2021-02-08] MEDS: SULFAMETHOXAZOL/TRIMETHOPRI IV 20 ML in IV DEXTROSE 5% 500 ML IV SCH ×2 (08:29→21:26)
[2021-02-08] MEDS: IV NS 1000 ML 1,000 ML IV PRN (09:08)
--- NOTE | 2021-02-08 09:51 | NUR ---
Physical therapy at bedside about to start exercise with patient.
[2021-02-08] MEDS: JEVITY 1.2 1000 ML LIQUID GT PRN (09:55)
[2021-02-08] MEDS: HYDROCODONE/APAP 5-325MG TABLET PO PRN (10:43)
--- NOTE | 2021-02-08 11:01 | NUR ---
Patient asked for pain medication. When asked if she has a headache, patient nods yes. Asked patient if she wants pain medication, patient nods yes again. Prior to administration, patient shakes her head when asked if she wants her pain medication anymore. Clarified and patient adamantly refuses. [place] PRN not given at this time.
--- NOTE | 2021-02-08 13:40 | NUR ---
Spoke with patient's mom, Katia, over the phone. Given update regarding patient condition. States she will be coming to visit this afternoon.
[2021-02-08] MEDS: FLUCONAZOLE 400MG /NS 200ML IV 400 MG in PREMIXED 1 EACH IV SCH (18:18)
--- NOTE | 2021-02-08 18:47 | NUR ---
Patient resting in bed, easily arousable and able to follow commands. Remains hemodynamically stable. SB-SR on monitor. Vent settings remain at AC 16, TV 450, FiO2 30%, PEEP 5. SpO2 >98%, Tolerating current vent settings well. NG tube patent running TF at goal rate, tolerating well. Trejo patent and draining via gravity. Total urine output throughout shift - 3025 ml. Aspiration precautions observed. Safety precautions in place. Will endorse to oncoming shift.
--- NOTE | 2021-02-08 19:05 | NUR ---
Received patient awake able to communicate and follow simple command by nodding and weak hand gip, tf on running Jevity 1.2 @60mL/Hr via ngt, placement checked and verified, and no residual noted lieberman draining, picc line intact, no fever, BP currently high 80s systolic but MAP in the 70s, will monitor pressure to see if Levophed is warranted. 100% SAT on current vent settings.
--- NOTE | 2021-02-08 20:39 | NUR ---
RECEIVED PATIENT INTUBATED ON A MECHANICAL VENTILATOR WITH THE FOLLOWING SETTINGS THAT ARE CHARTED ON THE MECHANICAL VENTILATOR NOTES. PATIENT HAS A SIZE 7.0 ET TUBE. ET TUBE IS PATENT AND SECURED AT APPROX 21CM AT THE LIP USING AN ANCHOR FAST. AMBU BAG IS BY BEDSIDE. VENTILATOR IS PLUGGED IN THE RED EMERGENCY OUTLET. VENTILATOR ALARMS CHECKED AND THEY ARE ON AND AUDIBLE. PATIENT IS TOLERATING CURRENT VENTILATOR SETTINGS WELL WITH NO SOB NOTED AT THIS TIME. WILL CONTINUE TO MONITOR.
[2021-02-08 21:46] LABS: *BILIRUBIN,URIN NEGATIVE (NEGATIVE); *BLOOD, URINE 1+ (NEGATIVE); *CLARITY,URINE CLEAR (CLEAR); *COLOR,URINE YELLOW (YELLOW); *KETONES,URINE NEGATIVE (NEGATIVE); *UROBILINOGEN,URINE 0.2 E.U./dl (NORMAL); LEUKOCYTE ESTERASE ,URINE NEGATIVE (NEGATIVE); NITRITE, URINE NEGATIVE (NEGATIVE); PH,URINE 6.5 (5.0-8.0); UGLUCOSE NEGATIVE (NEGATIVE)
[2021-02-08] MEDS: TEMAZEPAM 7.5 MG CAPSULE PO PRN (21:50)
[2021-02-08 22:27] LABS: RBC,URINE 20-50 /HPF (0-3)
[2021-02-08 22:28] LABS: BACTERIA,URINE FEW /HPF (NONE SEEN); SQUAMOUS EPITHELIAL CELL,UR FEW /HPF (NONE SEEN); WBC,URINE 0-3 /HPF (0-3)
[2021-02-09] VITALS (24 sets, daily range): BP systolic 99–123; BP diastolic 55–81
[2021-02-09] MEDS: CEFTRIAXONE 1 G in IV DEXTROSE 5% 50 ML IV SCH ×2 (01:55→14:18)
[2021-02-09] MEDS: AMPICILLIN IV 2 G in IV NORMAL SALINE 100 ML IV SCH ×6 (02:53→22:36)
[2021-02-09] MEDS: IV NS 1000 ML 1,000 ML IV PRN ×2 (04:15→20:15)
[2021-02-09] MEDS: IV NORMAL SALINE 250 ML IV PRN (04:44)
[2021-02-09 05:07] LABS: HEMATOCRIT 28.1 % (31.2-41.9); MEAN CORPUSCULAR VOLUME 88.8 fL (75.5-95.3); PLATELET COUNT (AUTO) 290 K/uL (179-408)
[2021-02-09 05:36] LABS: CREATININE 0.6 mg/dL (0.6-1.3); MAGNESIUM 2.1 mg/dL (1.8-2.4); PHOSPHOROUS 3.3 mg/dL (2.5-4.9); POTASSIUM 4.4 mmol/L (3.5-5.1)
--- NOTE | 2021-02-09 07:10 | NUR ---
Patient on CPAP trial pressure support 6, tolerating well thus far.
[2021-02-09] MEDS: SULFAMETHOXAZOL/TRIMETHOPRI IV 20 ML in IV DEXTROSE 5% 500 ML IV SCH ×2 (08:04→20:55)
[2021-02-09] MEDS: GANCICLOVIR SODIUM IV SCH ×2 (08:05→20:35)
[2021-02-09] MEDS: NORMAL SALINE IV SCH ×2 (08:05→20:35)
[2021-02-09] MEDS: PANTOPRAZOLE ORAL SUSPENSION 40 MG SUSPDR.PKT NG SCH (08:31)
[2021-02-09] MEDS: ACIDOPHILUS/BULGARICUS CHEW TAB NG SCH ×2 (08:31→20:55)
[2021-02-09] MEDS: JEVITY 1.2 1000 ML LIQUID GT PRN (08:31)
[2021-02-09] MEDS: ESCITALOPRAM OXALATE 10 MG TABLET PO SCH (08:31)
[2021-02-09] MEDS: CALCIUM CITRA-VITAMIN D 315 MG-250 UNITS TABLET PO SCH (08:32)
[2021-02-09] MEDS: ENOXAPARIN SODIUM 40 MG/0.4 ML DISP.SYRIN SQ SCH (08:34)
[2021-02-09 09:27] LABS: ABG BASE EXCESS 0.4 mmol/L; ABG HCO3 23.7 mmol/L; ABG PCO2 33.5 mmHg (35.0-45.0); ABG PH 7.468 (7.350-7.450); ABG PO2 148.6 mmHg (75.0-100.0); ABG SITE RIGHT RADIAL; ABG TOTAL HEMOGLOBIN 10.2 G/dL (12.0-16.0); COHb 0.2 % (0.5-1.5); MetHb 0.4 % (0.0-1.5); O2Hb 98.6 % (94.0-97.0); VENT MODE VENT - CPAP - PS 6
--- NOTE | 2021-02-09 10:18 | NUR ---
Dr. Emery in unit - Patient to be extubated - RT called
[2021-02-09] MEDS ORDERED: DC PROPOFOL ONCE EXTUBATED XX PRN (10:20)
--- NOTE | 2021-02-09 10:30 | NUR ---
Patient extubated at this time - tolerating well Now on 4L via NC - Saturations 100% - No respiratory distress noted - Suctioning PRN
[2021-02-09] MEDS ORDERED: ALBUTEROL SULFATE 2.5 MG/3 ML NEBU NEB PRN (11:00)
--- NOTE | 2021-02-09 12:34 | NUR ---
Patients mother reported that Patient is not to have any visitors by the name of Berto Blanchard for concern of patient safety.
[2021-02-09] MEDS: FLUCONAZOLE 400MG /NS 200ML IV 400 MG in PREMIXED 1 EACH IV SCH (18:14)
--- NOTE | 2021-02-09 18:45 | NUR ---
Patient more alert and now able to communicate needs verbally - albeit with a very soft/coarse voice. Anxious. Strength minimally improved. Sinus rhythm - BPs stable w/o pressor support - afebrile Extubated @ 1030 - no dyspnea, no sob, no labored breathings. Saturations 100% on 1L NC at this moment. Minimal oral secretions present post extubation. GI/: Tolerating feedings adequately at goal rate. bm x 1. 3300 clear urine output.
--- NOTE | 2021-02-09 19:30 | NUR ---
Report received. Patient awake, S/P extubation at 10:30 this am, on NC O2 at 1 L/min. O2 saturations 97-100%. Oriented to place, but not to date and time. Reoriented. Able to follow simple commands. Spitting out white secretions. PM care done. Had a small brown BM. Skin care provided. Turned and repositioned. HOB elevated above 30 degrees at all times. Addendum: 02/10/21 at 0110 by MICKEY WALDROP RN Amended: Links added.
[2021-02-09] MEDS: ACETAMINOPHEN 325 MG TABLET PO PRN (20:56)
[2021-02-10] VITALS (24 sets, daily range): BP systolic 89–117; BP diastolic 52–81
[2021-02-10] MEDS: CEFTRIAXONE 1 G in IV DEXTROSE 5% 50 ML IV SCH ×2 (01:31→13:54)
[2021-02-10] MEDS: AMPICILLIN IV 2 G in IV NORMAL SALINE 100 ML IV SCH ×6 (02:22→22:41)
[2021-02-10 04:58] LABS: HEMATOCRIT 33.5 % (31.2-41.9); MEAN CORPUSCULAR HEMOGLOBIN 29.8 uug (24.7-32.8); PLATELET COUNT (AUTO) 220 K/uL (179-408)
[2021-02-10 05:08] LABS: CARBON DIOXIDE 27 mmol/L (21-32); CHLORIDE 103 mmol/L (98-107); CREATININE 0.5 mg/dL (0.6-1.3); GLUCOSE 113 mg/dL (74-106); PHOSPHOROUS 3.8 mg/dL (2.5-4.9); UREA NITROGEN, BLOOD 11 mg/dL (7-18)
[2021-02-10] MEDS: IV NS 1000 ML 1,000 ML IV PRN ×2 (06:04→20:10)
[2021-02-10] MEDS: IV NORMAL SALINE 250 ML IV PRN (06:05)
[2021-02-10] MEDS: PANTOPRAZOLE ORAL SUSPENSION 40 MG SUSPDR.PKT NG SCH (06:22)
--- NOTE | 2021-02-10 06:30 | NUR ---
Condition unchanged. Awake, able to make needs known. Mildly anxious when awake; needs reassurance. Stable on O2 1L NC. Tolerating NGT feedings fairly well; off [id number].
[2021-02-10] MEDS: NORMAL SALINE IV SCH ×2 (07:55→20:09)
[2021-02-10] MEDS: GANCICLOVIR SODIUM IV SCH ×2 (07:55→20:09)
[2021-02-10] MEDS: SULFAMETHOXAZOL/TRIMETHOPRI IV 20 ML in IV DEXTROSE 5% 500 ML IV SCH ×2 (08:30→20:09)
[2021-02-10] MEDS: ESCITALOPRAM OXALATE 10 MG TABLET PO SCH (08:31)
[2021-02-10 08:32] LABS: ABG BASE EXCESS 0.3 mmol/L; ABG HCO3 23.3 mmol/L; ABG PCO2 31.6 mmHg (35.0-45.0); ABG PH 7.485 (7.350-7.450); ABG PO2 159.7 mmHg (75.0-100.0); ABG SITE RIGHT RADIAL; COHb 0.4 % (0.5-1.5); MetHb 0.4 % (0.0-1.5); O2Hb 98.4 % (94.0-97.0); VENT MODE Nasal Cannula
[2021-02-10] MEDS: ENOXAPARIN SODIUM 40 MG/0.4 ML DISP.SYRIN SQ SCH (08:33)
[2021-02-10] MEDS: CALCIUM CITRA-VITAMIN D 315 MG-250 UNITS TABLET PO SCH (08:33)
[2021-02-10] MEDS: ACIDOPHILUS/BULGARICUS CHEW TAB NG SCH ×2 (08:34→20:13)
[2021-02-10] MEDS: MULTIVITAMINS,THERAPEUTIC TABLET NG SCH (10:17)
[2021-02-10] MEDS: CYANOCOBALAMIN 1000 MCG/ML VIAL IM SCH (10:17)
[2021-02-10] MEDS: THIAMINE HCL 100 MG TABLET NG SCH (10:17)
--- NOTE | 2021-02-10 10:30 | NUR ---
Unable to obtain FVC, aware.. Will try for FVC tomorrow am..
[2021-02-10] MEDS: FLUCONAZOLE 400MG /NS 200ML IV 400 MG in PREMIXED 1 EACH IV SCH (17:59)
[2021-02-10] MEDS: ACETAMINOPHEN 325 MG TABLET PO PRN (18:07)
--- NOTE | 2021-02-10 19:05 | NUR ---
0730am: Loading Unit Tool Setter assumes care. SBAR received from RN Natasha. 0849am: Patient is tolerating room air. SpO2 levels above 94%, calm, comfortable, respiration:easy, nonlabored, even and symmetrical with clear breath sounds bilaterally, speaking in sentences with soft,whisper-like voice. 1002am: Dr [email or web address] with orders to get force vital capacity (FVC) and negative inspiratory force levels (NIF). Respiratory therapist Garry is aware. Patient wants her ICDs off. "It is uncomfortable." per patient's verbalization. With verbal health teachings and reminders about VTE prevention, patient agrees to turn on the ICDs intermittently for about 10 minutes at a time. 1503pm: Dr [email or web address]. 1541PM: Patient is resting comfortably on bed with eyes close. She is sleeping intermittently. 1630pm: New gown and new bed sheets are on. Patient is practicing to swallow her saliva and doing her ROMs on all four extremities when awake. 1705pm: Patient's mother@bedside. 1823pm: Engineering staff Ray is fixing patient's window blinds. The afternoon sunshine is "bothering" patient's eyes secondary to broken window blinds. Patient also complains of mid-back pains, medicated accordingly. Position changes done. Comfort and safety measures maintained. 1827pm:AUGUSTO Vee (Infectious disease) notified by phone re: Please call patient's mother anytime (mother's request) about the intermittent blurry vision. 1851pm: I attempted to call Dr Garcia (neurology) at [phone] but unsuccessful (re: Please call patient's mother anytime regarding the intermittent blurry vision). I will endorsed to incoming shift RN about this mother's request.
--- NOTE | 2021-02-10 19:30 | NUR ---
rounds made with the day shift RN and shift lab technician RN ,bed side report done . patient awake ,alert . patient able to talk and able to verbalized needs . denies pain at this time , no respiratory distress noted RR 18 saturation 99 to 100%
--- NOTE | 2021-02-10 19:40 | NUR ---
turned and reposition patient ,offloaded back with pillow upper and lower extremities up with pillows ,heels offloaded with pillows scds used . hob up
--- NOTE | 2021-02-10 20:00 | NUR ---
afebrile ,patient able to squeezed left hand but very weak left had stronger than the right hand , unable to elevate both upper and lower extremities severe weakness .
[2021-02-10] MEDS: HYDROCODONE/APAP 5-325MG TABLET PO PRN (20:15)
--- NOTE | 2021-02-10 20:45 | NUR ---
due medication given and scan ,flushed ngt tube very minimal residual 10 ml ,tolerating TF patient on Glucerna 60 ml/hr goal .
--- NOTE | 2021-02-10 21:00 | NUR ---
informed respiratory therapist bed 3 with order for EKG to measures QTC since patient on azole therapy . spoked with Ladarius .
--- NOTE | 2021-02-10 21:15 | NUR ---
PATIENT MOTHER CALLED AND CONCERNED ABOUT HER DAUGHTER BEING DEPRESSED NOW SHES MORE AWAKE AND ALERT ,EYES FOGGY NOT ABLE TO SEE WELL ON AND OFF ,LOWER/ UPPER EXTREMITIES NOT MOVING .SHE WANTS TO SPEAK TO ID ,NEUROLOGY AND WANTS OPHTHALMOLOGY DOCTOR ON THE CASE .I TOLD THE MOTHER THAT I WILL ENDORSED IT TO THE DAY SHIFT RN AND IF ANY DOCTOR THAT WILL COME TO SEE HER TONIGHT I WILL INFORMED THEM THAT THE MOTHER WANTS TO SPEAK TO ANY DOCTOR THAT COME AND SEE HER DAUGHTER .
--- NOTE | 2021-02-10 21:41 | NUR ---
ekg results -vent rate;77 BPM NSR NORMAL EKG LA -146 MS QRS DURATION -76 MS QT/QTC 374/423 MS PRT AXES-64 44 50
--- NOTE | 2021-02-10 23:00 | NUR ---
offer the sleeping medication Restoril patient said no to sleeping medication and that she will try to sleep on her own .
[2021-02-11] VITALS (25 sets, daily range): BP systolic 92–116; BP diastolic 53–75
[2021-02-11] MEDS: CEFTRIAXONE 1 G in IV DEXTROSE 5% 50 ML IV SCH ×2 (01:47→13:06)
--- NOTE | 2021-02-11 01:53 | NUR ---
patient in bed sleeping no respiratory distress noted,breathing even and unlabored rr 16 saturation 99 %.on room air . bp 106/59 hr 83 . no s/s of pain .
[2021-02-11] MEDS: AMPICILLIN IV 2 G in IV NORMAL SALINE 100 ML IV SCH ×6 (02:23→23:11)
[2021-02-11] MEDS: ACETAMINOPHEN 325 MG TABLET PO PRN ×2 (02:28→16:31)
--- NOTE | 2021-02-11 02:28 | NUR ---
rounds made patient open eyes to voice patient verbalized shes hot ,checked temperature 99.3 F ORALLY ,given Tylenol prn for temperature crushed tablet and given via NGT flushed with water, patient also wants her blanket removed ,informed patient i will checked temperature again .
--- NOTE | 2021-02-11 03:45 | NUR ---
am care done ,bath patient ,changed soiled Linens and gown . perineal care done . f/c done .oral care done .
--- NOTE | 2021-02-11 04:30 | NUR ---
patient verbalized she wants a sleeping medication ,as per patient she did not sleep at all . informed its late an ist 0430 already morning she said she wants to sleep and she wants the sleeping aide .
[2021-02-11] MEDS: TEMAZEPAM 7.5 MG CAPSULE PO PRN (04:33)
[2021-02-11 05:19] LABS: HEMATOCRIT 27.3 % (31.2-41.9); MEAN CORPUSCULAR VOLUME 88.8 fL (75.5-95.3); PLATELET COUNT (AUTO) 232 K/uL (179-408)
--- NOTE | 2021-02-11 05:19 | NUR ---
patient verbalized her feet are hot and wants the multi podus boots .she wants it off removed boot and foot care done scds off for now to air out lower extremities will reapply with in an hour .
[2021-02-11 05:28] LABS: CREATININE 0.8 mg/dL (0.6-1.3); MAGNESIUM 1.9 mg/dL (1.8-2.4); PHOSPHOROUS 3.7 mg/dL (2.5-4.9); POTASSIUM 4.2 mmol/L (3.5-5.1)
[2021-02-11] MEDS: PANTOPRAZOLE ORAL SUSPENSION 40 MG SUSPDR.PKT NG SCH (06:09)
--- NOTE | 2021-02-11 07:05 | NUR ---
Received pt. on bed resting comfortably no c/of pain. On room air with saturation of 100% no tachypnea. Sinus rhythm on the monitor with sbp of 109/71 and HR of 69. Ng clamped, placement verified. Trejo to gravity with adequate clear romero output. No skin breakdown noted. Will continue with care plan
[2021-02-11] MEDS: NORMAL SALINE IV SCH ×2 (07:58→19:43)
[2021-02-11] MEDS: GANCICLOVIR SODIUM IV SCH ×2 (07:58→19:43)
[2021-02-11] MEDS: SULFAMETHOXAZOL/TRIMETHOPRI IV 20 ML in IV DEXTROSE 5% 500 ML IV SCH ×2 (08:06→21:08)
[2021-02-11] MEDS: CYANOCOBALAMIN 1000 MCG/ML VIAL IM SCH (08:16)
[2021-02-11] MEDS: ACIDOPHILUS/BULGARICUS CHEW TAB NG SCH ×2 (08:16→21:09)
[2021-02-11] MEDS: THIAMINE HCL 100 MG TABLET NG SCH (08:16)
[2021-02-11] MEDS: MULTIVITAMINS,THERAPEUTIC TABLET NG SCH (08:16)
[2021-02-11] MEDS: ENOXAPARIN SODIUM 40 MG/0.4 ML DISP.SYRIN SQ SCH (08:18)
[2021-02-11] MEDS: CALCIUM CITRA-VITAMIN D 315 MG-250 UNITS TABLET PO SCH (08:18)
[2021-02-11] MEDS: ESCITALOPRAM OXALATE 10 MG TABLET PO SCH (08:19)
[2021-02-11] MEDS: JEVITY 1.2 1000 ML LIQUID GT PRN (08:22)
--- NOTE | 2021-02-11 08:45 | NUR ---
FVC and NIF values obtained bedside, pt expressed understanding of test.. NIF 20, FVC .6 mL..
--- NOTE | 2021-02-11 09:20 | NUR ---
A call from Katia pt's mom at this time she was updated of pt's current condition and care plan a request to have a call from all 's involved with patient care. She assured that 's will be notified of her request once they round on pt.
--- NOTE | 2021-02-11 09:37 | NUR ---
Patient been assessed by tool and die technician Dr. Emery. See order hx.
[2021-02-11] MEDS: IV NS 1000 ML 1,000 ML IV PRN (12:37)
--- NOTE | 2021-02-11 12:42 | NUR ---
Attending physician Dr. Bianca Jay in the unit to see pt. report given see order hx.
--- NOTE | 2021-02-11 16:26 | NUR ---
A 2nd call from Ms. Montalvo pt's mom requesting an update by attending and each specialty involved in pt. care but verbalizing desire to have a call today from ID, Neuro, and Insole Doubler. At this time she was updated from nursing stand point and informed that attending was informed of her request and she will be updated tomorrow. ID and neuro were not here yet.
[2021-02-11] MEDS: FLUCONAZOLE 400MG /NS 200ML IV 400 MG in PREMIXED 1 EACH IV SCH (17:01)
--- NOTE | 2021-02-11 18:39 | NUR ---
Left pt. on bed resting comfortably no c/of pain. On room air with saturation of 100% no tachypnea. Sinus rhythm on the monitor with sbp of 100/66 and HR of 64. Ng to feeding at goal therapy with no residuals. No n/v/or diarrhea. Trejo to gravity with adequate clear romero output. No skin breakdown noted. Will continue with care plan and endorse to incoming shift.
--- NOTE | 2021-02-11 19:05 | NUR ---
Received patient awake and in bed. Patient is currently A/O x3, is talking very clearly. Patient still have a good deal of weakness in her extremities, and it seems little progress has been made with that since I last took care of her on . SR on the monitor, BP stable 100% O2 SAT on RA. No complaints of pain. Patient complaints of frequently feeling hot and then cold, though currently afebrile. NGT remains in place running Jevity 1.2 @60mL/Hr. Trejo remains in place draining clear yellow urine. Skin remains clear.
--- NOTE | 2021-02-11 20:30 | NUR ---
Mother has just informed me that the patient does have a familial history of Systemic Lupus Erythematosus, that her mother's sister alledgedly of the disease after it went misdiagnosed. I am unable to locate any notation of this in her history in either nursing documentation or physician documentation. This was most likely not reported. Adding this to her family Hx. Addendum: 02/11/21 at 2042 by GRECIA RAGSDALE RN Familial Hx of systemic lupus erythematosus- Aunt (Maternal side- Mother's sister), from the disease.
[2021-02-12] VITALS (12 sets, daily range): BP systolic 87–115; BP diastolic 48–73
[2021-02-12] MEDS: TEMAZEPAM 7.5 MG CAPSULE PO PRN ×2 (00:42→21:07)
[2021-02-12] MEDS: ACETAMINOPHEN 325 MG TABLET PO PRN ×2 (00:42→07:42)
[2021-02-12] MEDS: CEFTRIAXONE 1 G in IV DEXTROSE 5% 50 ML IV SCH (02:17)
[2021-02-12] MEDS: AMPICILLIN IV 2 G in IV NORMAL SALINE 100 ML IV SCH ×6 (03:00→23:00)
--- NOTE | 2021-02-12 04:23 | NUR ---
Patient stating she is still experiencing periods of being hot and cold. During periods where she feels hot, she is even perspiring on her head, face and neck, however oral temperature shows afebrile. Condition persists even though Tylenol was administered earlier.
[2021-02-12 05:02] LABS: HEMATOCRIT 26.4 % (31.2-41.9); MEAN CORPUSCULAR HEMOGLOBIN 29.9 uug (24.7-32.8); MEAN CORPUSCULAR VOLUME 89.1 fL (75.5-95.3); PLATELET COUNT (AUTO) 196 K/uL (179-408)
[2021-02-12 05:24] LABS: CREATININE 0.6 mg/dL (0.6-1.3); MAGNESIUM 1.9 mg/dL (1.8-2.4); PHOSPHOROUS 4.1 mg/dL (2.5-4.9); POTASSIUM 4.3 mmol/L (3.5-5.1)
[2021-02-12] MEDS: IV NS 1000 ML 1,000 ML IV PRN ×2 (06:08→19:33)
[2021-02-12] MEDS: PANTOPRAZOLE ORAL SUSPENSION 40 MG SUSPDR.PKT NG SCH (06:48)
--- NOTE | 2021-02-12 06:59 | NUR ---
Patient remains in stable condition. Patient slept well during the night, currently awake, A/O x3, and talking very clearly. Patient reporting this morning that she is getting feeling back in her legs and she is able to move her toes and feet on command, though still weak. SR on the monitor, BP stable 100% O2 SAT remains on RA. No complaints of pain. Patient still complaints of frequently feeling hot and then cold, though afebrile throughout the night. NGT remains in place running Jevity 1.2 @60mL/Hr tolerating well. Trejo remains in place draining clear yellow urine, though still putting out copious volume 2600mL in the past 12 hours. Skin remains clear.
--- NOTE | 2021-02-12 07:05 | NUR ---
Received pt. on bed resting comfortably no c/of pain. On room air with saturation of 100% no tachypnea. Sinus rhythm on the monitor with sbp of 108/73 and HR of 74, with body temp of 99.1 Ng clamped, placement verified. Trejo to gravity with adequate clear romero output. No skin breakdown noted. Will continue with care plan
[2021-02-12] MEDS: NORMAL SALINE IV SCH ×2 (07:42→20:28)
[2021-02-12] MEDS: GANCICLOVIR SODIUM IV SCH ×2 (07:42→20:28)
[2021-02-12] MEDS: ESCITALOPRAM OXALATE 10 MG TABLET PO SCH (08:00)
[2021-02-12] MEDS: ENOXAPARIN SODIUM 40 MG/0.4 ML DISP.SYRIN SQ SCH (08:00)
[2021-02-12] MEDS: ACIDOPHILUS/BULGARICUS CHEW TAB NG SCH ×2 (08:00→21:00)
[2021-02-12] MEDS: THIAMINE HCL 100 MG TABLET NG SCH (08:00)
[2021-02-12] MEDS: MULTIVITAMINS,THERAPEUTIC TABLET NG SCH (08:00)
[2021-02-12] MEDS: CALCIUM CITRA-VITAMIN D 315 MG-250 UNITS TABLET PO SCH (08:01)
[2021-02-12] MEDS: SULFAMETHOXAZOL/TRIMETHOPRI IV 20 ML in IV DEXTROSE 5% 500 ML IV SCH ×2 (08:03→21:07)
[2021-02-12] MEDS: CYANOCOBALAMIN 1000 MCG/ML VIAL IM SCH (08:03)
--- NOTE | 2021-02-12 08:30 | NUR ---
Patient evaluated by speech therapist Ms. Peace and as reported pt. passed swallow evaluation and diet will be recommended and ordered.
--- NOTE | 2021-02-12 08:49 | NUR ---
Attending Dr. Bianca Jay, called to be notified of pt's performance during swallow evaluation and informed of recommendations by Ms. Peace speech therapist. Orders to dcd Ng tube received and continue with care plan
--- NOTE | 2021-02-12 08:51 | NUR ---
PT's mom in the unit to visit at this time she was updated on care plan from nursing stand-point. Addendum: 02/12/21 at 0859 by NYDIA CAMEJO RN Attending notified of her request to speak to her as stated "attending will reach her on later basis" Tere Katia rashi.
--- NOTE | 2021-02-12 09:04 | NUR ---
Fishing Reel Assembler Dr. Banks in the unit to see and examine pt. at this time pt's mom Ms. Montalvo updated by him.
--- NOTE | 2021-02-12 09:40 | NUR ---
DAILY PULMONARY MECHANICS MEASUREMENT: FVC 0.8L, NIF -30cm H2O, fair/good effort produced by pt, but does require repeated coaching
--- NOTE | 2021-02-12 11:00 | NUR ---
Patient seen by REZA Tony she was informed of pt's mother request to give her a call with an up date.
--- NOTE | 2021-02-12 14:25 | NUR ---
patient seen by Dr. Garcia neuro service. Report given informed of pt's mother request to give her a call with an update on care plan. As stated by . "I'll give her a call tomorrow"
--- NOTE | 2021-02-12 17:23 | NUR ---
Patient seen by attending physician Dr. Pierre Dr. informed that pt. noted to have some suspicious cough with foods and drink but also informed that pt. strongly denies that this is food related. Orders to change food consistency to puree.
--- NOTE | 2021-02-12 17:27 | NUR ---
Left pt. on bed resting comfortably no c/of pain. On room air with saturation of 100% no tachypnea. Sinus rhythm on the monitor with sbp of 108/74and HR of 61, Afebrile for the shift. Tolerating diet well no n/v/d. Trejo to gravity with adequate clear romero output. No skin breakdown noted. Will continue with care plan under telemetry monitoring while bed available.
[2021-02-12] MEDS: HYDROCODONE/APAP 5-325MG TABLET PO PRN (18:34)
--- NOTE | 2021-02-12 19:05 | NUR ---
Received patient awake and in bed. Patient is currently A/O x3, is talking very clearly. Patient still have a good deal of weakness in her extremities. SR on the monitor, BP stable 100% O2 SAT on RA. No complaints of pain. Currently afebrile. NGT removed earlier in the day, passed swallow eval, currently on pureed diet. Previous shift reported patient experienced difficultly swallowing consistencies more advanced than pureed foods. Trejo remains in place draining clear yellow urine. Skin remains clear. DEREJE PICC remains patent, NS @75mL/hr, other 2 lumens running NS TKO for ATB/Antiviral administration.
[2021-02-13] VITALS: BP 89/58
[2021-02-13] MEDS: AMPICILLIN IV 2 G in IV NORMAL SALINE 100 ML IV SCH ×3 (04:38→11:24)
[2021-02-13 05:15] LABS: HEMATOCRIT 25.6 % (31.2-41.9); MEAN CORPUSCULAR HEMOGLOBIN 30.5 uug (24.7-32.8); PLATELET COUNT (AUTO) 179 K/uL (179-408)
[2021-02-13 05:23] LABS: BILIRUBIN,TOTAL 0.3 mg/dL (0.2-1.0); CREATININE 0.7 mg/dL (0.6-1.3); MAGNESIUM 1.9 mg/dL (1.8-2.4); PHOSPHOROUS 4.4 mg/dL (2.5-4.9); POTASSIUM 4.3 mmol/L (3.5-5.1); TOTAL PROTEIN, SERUM 5.9 g/dL (6.4-8.2)
[2021-02-13] MEDS: PANTOPRAZOLE ORAL SUSPENSION 40 MG SUSPDR.PKT NG SCH (06:57)
[2021-02-13 07:48] VITALS: BP 101/66
[2021-02-13] MEDS: NORMAL SALINE IV SCH (07:58)
[2021-02-13] MEDS: GANCICLOVIR SODIUM IV SCH (07:58)
[2021-02-13] MEDS: IV NS 1000 ML 1,000 ML IV PRN (08:15)
[2021-02-13] MEDS: ESCITALOPRAM OXALATE 10 MG TABLET PO SCH (08:35)
[2021-02-13] MEDS: HYDROCODONE/APAP 5-325MG TABLET PO PRN (08:36)
[2021-02-13] MEDS: ENOXAPARIN SODIUM 40 MG/0.4 ML DISP.SYRIN SQ SCH (08:36)
[2021-02-13] MEDS: CYANOCOBALAMIN 1000 MCG/ML VIAL IM SCH (08:36)
[2021-02-13] MEDS: CALCIUM CITRA-VITAMIN D 315 MG-250 UNITS TABLET PO SCH (08:37)
[2021-02-13] MEDS: ACIDOPHILUS/BULGARICUS CHEW TAB NG SCH ×2 (08:39→20:32)
[2021-02-13] MEDS: MULTIVITAMINS,THERAPEUTIC TABLET NG SCH (08:39)
[2021-02-13] MEDS: THIAMINE HCL 100 MG TABLET NG SCH (08:40)
--- NOTE | 2021-02-13 09:20 | NUR ---
DAILY PULMONARY MECHANICS MEASUREMENT: FVC 1.0L, NIF -40cm H2O. GOOD PATIENT EFFORT.
[2021-02-13] MEDS: SULFAMETHOXAZOL/TRIMETHOPRI IV 20 ML in IV DEXTROSE 5% 500 ML IV SCH ×2 (09:31→20:28)
--- NOTE | 2021-02-13 10:00 | NUR ---
recieved report from lou santana
--- NOTE | 2021-02-13 10:25 | NUR ---
TRANSFER TO TELEMETRY UNIT VIA BED. REPORT GIVEN TO STAFF FOR CONTINUITY OF CARE
--- NOTE | 2021-02-13 10:30 | NUR ---
admitted to telemetry unit form [facility]. pt alert and oriented x4. sinus rhythm heart rate 71 on monitor. denies sob/pain. comfortable on room air. picc line intact with iv bactrim infusing tolerated well. lieberman catheter intact draining yellow urine. changed and repositioned in comfortable position. call light in reach. safety measures in place. kept comfortable. charles (mother) made aware of transfer. ryland cafeteria team leader also aware.
[2021-02-13 10:59] VITALS: BP 130/64
--- NOTE | 2021-02-13 12:50 | NUR ---
assisted with patient's lunch. tolerated well. no nausea or vomiting noted. will continue to monitor.
[2021-02-13 16:00] VITALS: BP 114/63
[2021-02-13] MEDS: ACETAMINOPHEN 325 MG TABLET PO PRN ×2 (16:40→23:43)
--- NOTE | 2021-02-13 18:59 | NUR ---
patient currently laying in bed in no distress. patient continues with weakness to bilateral upper and lower extremities, requiring total assistance for all ADL's. Patient had dinner and ate 75% of dinner, tolerated well. f/c in place and patent draining clear yellow urine. vital signs remained stable after transfer from [facility], no complaint of pain at this time. repositioned q 2 hr and as needed for comfort, kept clean and dry. call right within reach, side rails up x2. Frequent visual checks provided due to patient feeling anxious.
--- NOTE | 2021-02-13 20:00 | NUR ---
PATIENT ALERT ORIENTED, NO SOB NO CHEST PAIN, NOTED, ON TELE MONITOR SINUS RHYTHM AT THIS TIME, NO COMPLAIN OF PAIN, PATIENT ON ROOM AIR, SAT WNL, TURN AND REPOSITION , KEPT COMFORTABLE, FREQUENTLY CHECK, CLOSE TO STATION FOR CLOSE MONITORING, ABLE TO PUT PATIENT SUPPORT ASSISTANT LIGHTS, CONT TO MONITOR.
[2021-02-13 20:14] VITALS: BP 106/59
[2021-02-13] MEDS: TEMAZEPAM 7.5 MG CAPSULE PO PRN (23:43)
[2021-02-14 00:02] VITALS: BP 111/67
--- NOTE | 2021-02-14 04:47 | NUR ---
PATIENT ASLEEP BUT AROUSABLE, NO SOB NO CHEST PAIN, TURN AND REPOSITION, FUNEZ CATH PATENT, AFEBRILE, PATIENT REQUIRES TOTAL ASSIST WITH ADL'S, NO ADVERSE CHANGES NOTED AT THIS TIME, CALL LIGHT WITHIN REACH.
[2021-02-14 04:55] VITALS: BP 120/68
[2021-02-14] MEDS: PANTOPRAZOLE ORAL SUSPENSION 40 MG SUSPDR.PKT NG SCH (06:09)
[2021-02-14] MEDS: ACIDOPHILUS/BULGARICUS CHEW TAB NG SCH ×2 (09:46→20:21)
[2021-02-14] MEDS: ENOXAPARIN SODIUM 40 MG/0.4 ML DISP.SYRIN SQ SCH (09:47)
[2021-02-14] MEDS: ESCITALOPRAM OXALATE 10 MG TABLET PO SCH (09:47)
[2021-02-14] MEDS: MULTIVITAMINS,THERAPEUTIC TABLET NG SCH (09:47)
[2021-02-14] MEDS: CALCIUM CITRA-VITAMIN D 315 MG-250 UNITS TABLET PO SCH (09:47)
[2021-02-14] MEDS: THIAMINE HCL 100 MG TABLET NG SCH (09:47)
[2021-02-14] MEDS: SULFAMETHOXAZOL/TRIMETHOPRI IV 20 ML in IV DEXTROSE 5% 500 ML IV SCH ×2 (09:48→22:40)
[2021-02-14] MEDS: CYANOCOBALAMIN 1000 MCG/ML VIAL IM SCH (09:48)
[2021-02-14 09:51] VITALS: BP 117/72
--- NOTE | 2021-02-14 11:25 | NUR ---
DAILY PULMONARY MECHANICS MEASUREMENT: FVC 0.6L, NIF -60cm H2O, fair/good effort produced by Pt, but does require repeated coaching. Pt doing well on room air. No respiratory distress noted.
[2021-02-14 12:00] VITALS: BP 111/63
[2021-02-14 12:36] LABS: *ANTI-SCLERODERMA-70 AB <0.2; *SJOGREN'S ANTI-SS-A <0.2; *SJOGREN'S ANTI-SS-B <0.2; *SMITH ANTIBODIES <0.2; ANTI-DNA(DS) AB, QN 4
[2021-02-14 16:00] VITALS: BP 114/62
--- NOTE | 2021-02-14 18:34 | NUR ---
Patient is alert/orintedx4, able to make needs known. Requested PRN pain medication x1 during the shift. Tolerated therapy today. D/C telemetry as ordered at 1044H Per ST, diet will be advanced. Afebrile during the shift. Frequent visual check done. Kept call light within reach. Assisted with ADLs. All needs attended. Kept environment safe. All due meds given as ordered. Will endorse to the next shift for continuity of care.
[2021-02-14 20:00] VITALS: BP_SYST 111
[2021-02-14] MEDS: TEMAZEPAM 7.5 MG CAPSULE PO PRN (21:11)
[2021-02-14] MEDS ORDERED: SULFAMETHOXAZOLE/TRIMETHOPRIM 10 ML VIAL IV ONE ×2 (22:37→22:39)
[2021-02-14] MEDS: HYDROCODONE/APAP 5-325MG TABLET PO PRN (22:51)
--- NOTE | 2021-02-15 06:05 | NUR ---
Pt slept intermittently throughout the night. Q4 neuro checks done. Patient is alert and oriented. Has severe weakness in all extremities. Needs maximum assist for all ADLs. MRI w/w/o contrast ordered, consent is signed and in chart. Safety and comfort provided. No other issues or concerns at this time, will endorse to day shift.
[2021-02-15] MEDS: PANTOPRAZOLE ORAL SUSPENSION 40 MG SUSPDR.PKT NG SCH (06:28)
--- NOTE | 2021-02-15 08:00 | NUR ---
received change of shift report from night RN. pt in bed resting, pt on air mattress, on room air, no signs of distress, no reports of pain. DEREJE picc line triple lumen. pt voiding via lieberman. pt a/ox4, call light in hand, bed low and locked, will continue with plan of care.
--- NOTE | 2021-02-15 08:00 | NUR ---
DAILY PULMONARY MECHANICS MEASUREMENT: FVC 0.8L, NIF -60cm H2O, fair/good effort produced by Pt, but does require repeated coaching. Pt doing well on room air. No respiratory distress noted.
[2021-02-15] MEDS: HYDROCODONE/APAP 5-325MG TABLET PO PRN ×2 (08:30→16:48)
[2021-02-15] MEDS: ESCITALOPRAM OXALATE 10 MG TABLET PO SCH (08:31)
[2021-02-15] MEDS: CALCIUM CITRA-VITAMIN D 315 MG-250 UNITS TABLET PO SCH (08:31)
[2021-02-15] MEDS: CYANOCOBALAMIN 1000 MCG/ML VIAL IM SCH (08:31)
[2021-02-15] MEDS: ENOXAPARIN SODIUM 40 MG/0.4 ML DISP.SYRIN SQ SCH (08:33)
[2021-02-15] MEDS: SULFAMETHOXAZOL/TRIMETHOPRI IV 20 ML in IV DEXTROSE 5% 500 ML IV SCH ×2 (08:36→20:23)
[2021-02-15] MEDS: THIAMINE HCL 100 MG TABLET PO SCH (08:38)
[2021-02-15] MEDS: ACIDOPHILUS/BULGARICUS CHEW TAB PO SCH ×2 (08:38→20:56)
[2021-02-15] MEDS: MULTIVITAMINS,THERAPEUTIC TABLET PO SCH (08:38)
[2021-02-15 11:00] VITALS: BP 110/76
--- NOTE | 2021-02-15 13:30 | NUR ---
pt taken to [facility] for MRI with and without contrast. consent form signed and in chart.
--- NOTE | 2021-02-15 14:48 | NUR ---
pt back from MRI, will continue to monitor. Pt only agreed to do MRI without contrast as she was getting claustrophobic, per [facility].
[2021-02-15 16:04] VITALS: BP 115/75
--- NOTE | 2021-02-15 16:10 | NUR ---
patient requesting for vital signs to be checked v/s 112/61 p: 75, rr: 20, t. 98.1, spo2 98% on r/a.
--- NOTE | 2021-02-15 16:31 | NUR ---
mother at bedside requesting to speak with physical therapy, explained that physical therapy is gone for the day but that we can have someone call her tomorrow during regular scheduled hours.
--- NOTE | 2021-02-15 18:43 | NUR ---
pt in bed, no reports of pain at this time, pt on air mattress. will endorse to oncoming nurse
[2021-02-15 20:14] VITALS: BP 112/61
[2021-02-15] MEDS: TEMAZEPAM 7.5 MG CAPSULE PO PRN (20:56)
[2021-02-16 04:23] VITALS: BP 114/69
[2021-02-16] MEDS: PANTOPRAZOLE SODIUM 40 MG TABLET.DR PO SCH (07:03)
--- NOTE | 2021-02-16 08:40 | NUR ---
DAILY PULMONARY MECHANICS MEASUREMENT: FVC 1.0L, NIF -60cm H2O. Good effort produced by Pt. Pt doing well on room air. No signs or symptoms of respiratory distress noted.
[2021-02-16] MEDS: CALCIUM CITRA-VITAMIN D 315 MG-250 UNITS TABLET PO SCH (08:49)
[2021-02-16] MEDS: THIAMINE HCL 100 MG TABLET PO SCH (08:49)
[2021-02-16] MEDS: MULTIVITAMINS,THERAPEUTIC TABLET PO SCH (08:49)
[2021-02-16] MEDS: ACIDOPHILUS/BULGARICUS CHEW TAB PO SCH ×2 (08:49→21:52)
[2021-02-16] MEDS: CYANOCOBALAMIN 1000 MCG/ML VIAL IM SCH (08:49)
[2021-02-16] MEDS: ESCITALOPRAM OXALATE 10 MG TABLET PO SCH (08:49)
[2021-02-16] MEDS: ENOXAPARIN SODIUM 40 MG/0.4 ML DISP.SYRIN SQ SCH (08:50)
[2021-02-16 11:50] VITALS: BP 108/69
[2021-02-16 15:49] VITALS: BP 117/76
[2021-02-16] MEDS: HYDROCODONE/APAP 5-325MG TABLET PO PRN (15:50)
[2021-02-16 20:35] VITALS: BP 103/61
[2021-02-16] MEDS: TEMAZEPAM 7.5 MG CAPSULE PO PRN (21:52)
--- NOTE | 2021-02-16 23:34 | NUR ---
PATIENT HAS EPISODE OF SONI 44 BEATS PER, RADHA SKIVING MACHINE OPERATOR NOTIFY WITH NO NEW ORDER, CONT TO MONITOR. BP 111/70, HR 72 SAT 99 ROOM AIR. AT THIS TIME.
[2021-02-17 04:45] VITALS: BP 113/71
[2021-02-17] MEDS: PANTOPRAZOLE SODIUM 40 MG TABLET.DR PO SCH (06:59)
--- NOTE | 2021-02-17 07:30 | NUR ---
Patient received on first step mattress, alert and oriented x4. On RA with no SOB or difficulties breathing. No acute distress noted. Trejo draining clear yellow urine via gravity. Right UA PICC line patent with no redness or swelling at this time. Helped patient readjust in bed to position of comfort. All needs met. Call light within easy reach. Will continue to monitor.
[2021-02-17] MEDS: ESCITALOPRAM OXALATE 10 MG TABLET PO SCH (08:52)
[2021-02-17] MEDS: ACIDOPHILUS/BULGARICUS CHEW TAB PO SCH ×2 (08:52→21:15)
[2021-02-17] MEDS: THIAMINE HCL 100 MG TABLET PO SCH (08:52)
[2021-02-17] MEDS: CALCIUM CITRA-VITAMIN D 315 MG-250 UNITS TABLET PO SCH (08:52)
[2021-02-17] MEDS: MULTIVITAMINS,THERAPEUTIC TABLET PO SCH (08:52)
[2021-02-17] MEDS: ENOXAPARIN SODIUM 40 MG/0.4 ML DISP.SYRIN SQ SCH (08:53)
--- NOTE | 2021-02-17 09:00 | NUR ---
RT FVC AND NIF WAS DONE AT THIS TIME. FVC 1.) 1.0 L 2.) 0.5 L 3.) 1.0 L NIF 1.) 30 cmH2o 2.) 60 cmH2o 3.) 35 cmH2o Addendum: 02/17/21 at 1146 by CARL LAM RT RT FVC AND NIF WAS DONE AT THIS TIME. FVC 1.) 1.0 L 2.) 0.5 L 3.) 1.0 L NIF 1.) -30 cmH2o 2.) -60 cmH2o 3.) -35 cmH2o
[2021-02-17 11:26] VITALS: BP 102/57
[2021-02-17 15:14] VITALS: BP 109/62
[2021-02-17] MEDS: HYDROCODONE/APAP 5-325MG TABLET PO PRN (18:30)
[2021-02-17 20:00] VITALS: BP 104/67
[2021-02-17] MEDS: TEMAZEPAM 7.5 MG CAPSULE PO PRN (21:15)
--- NOTE | 2021-02-18 04:19 | NUR ---
PATIENT ASLEEP BUT AROUSABLE,NO SOB NO CHEST PAIN, NO COMPLAIN OF PAIN, KEPT CLEAN DRY AND COMFORTABLE, REQUEST TOTAL ASSIST WITH ADL'S,ATTEND ALL NEEDS, CONT TO MONITOR.
[2021-02-18] MEDS: PANTOPRAZOLE SODIUM 40 MG TABLET.DR PO SCH (06:50)
[2021-02-18] MEDS: CALCIUM CITRA-VITAMIN D 315 MG-250 UNITS TABLET PO SCH (08:17)
[2021-02-18] MEDS: THIAMINE HCL 100 MG TABLET PO SCH (08:17)
[2021-02-18] MEDS: ESCITALOPRAM OXALATE 10 MG TABLET PO SCH (08:17)
[2021-02-18] MEDS: MULTIVITAMINS,THERAPEUTIC TABLET PO SCH (08:17)
[2021-02-18] MEDS: ACIDOPHILUS/BULGARICUS CHEW TAB PO SCH ×2 (08:17→20:23)
[2021-02-18] MEDS: ENOXAPARIN SODIUM 40 MG/0.4 ML DISP.SYRIN SQ SCH (08:18)
--- NOTE | 2021-02-18 09:00 | NUR ---
RT FVC AND NIF WAS DONE AT THIS TIME. FVC 1.) 0.8 L 2.) 1.0 L 3.) 1.2 L NIF 1.) -60 cmH2o 2.) -60 cmH2o 3.) -45 cmH2o
[2021-02-18 12:00] VITALS: BP 111/65
[2021-02-18 16:00] VITALS: BP 109/69
--- NOTE | 2021-02-18 17:05 | NUR ---
patient is in bed , no reports of pain at this time, total care to all ADLS reposition Q2 hrs for comfort pt on air mattress. will endorse to oncoming nurse
[2021-02-18 20:00] VITALS: BP 109/71
[2021-02-18] MEDS: HYDROCODONE/APAP 5-325MG TABLET PO PRN (20:35)
--- NOTE | 2021-02-18 23:47 | NUR ---
Received pt on bed with no respiratory distress noted. Alert and oriented x4, able to make needs known. PICC line on DEREJE remains patent and intact. Boyers PRN given with pain scale 8/10. Assisted in feeding, turning, and repositioning. All needs attended. Call light placed within reach. Will continue to monitor.
[2021-02-19 04:00] VITALS: BP 103/62
[2021-02-19 06:22] LABS: HEMATOCRIT 31.9 % (31.2-41.9); MEAN CORPUSCULAR HEMOGLOBIN 30.6 uug (24.7-32.8); MEAN CORPUSCULAR VOLUME 89.9 fL (75.5-95.3); PLATELET COUNT (AUTO) 352 K/uL (179-408)
--- NOTE | 2021-02-19 06:27 | NUR ---
Pt slept intermittently throughout the night, easily arousable for care and able to make needs known. All due medications given and tolerated well. Assisted in feeding, turning, and repositioning. All needs anticipated and attended. Call light placed within reach. Frequent visual checks done. Will continue to monitor.
[2021-02-19 06:42] LABS: CREATININE 0.6 mg/dL (0.6-1.3); MAGNESIUM 1.9 mg/dL (1.8-2.4); PHOSPHOROUS 4.7 mg/dL (2.5-4.9); POTASSIUM 4.1 mmol/L (3.5-5.1)
[2021-02-19] MEDS: PANTOPRAZOLE SODIUM 40 MG TABLET.DR PO SCH (07:21)
--- NOTE | 2021-02-19 07:54 | NUR ---
RT MECHANICS FVC= 1.3L NIF= -[id number]
[2021-02-19] MEDS: MULTIVITAMINS,THERAPEUTIC TABLET PO SCH (09:13)
[2021-02-19] MEDS: ESCITALOPRAM OXALATE 10 MG TABLET PO SCH (09:13)
[2021-02-19] MEDS: CALCIUM CITRA-VITAMIN D 315 MG-250 UNITS TABLET PO SCH (09:13)
[2021-02-19] MEDS: THIAMINE HCL 100 MG TABLET PO SCH (09:13)
[2021-02-19] MEDS: ACIDOPHILUS/BULGARICUS CHEW TAB PO SCH (09:13)
[2021-02-19] MEDS: ENOXAPARIN SODIUM 40 MG/0.4 ML DISP.SYRIN SQ SCH (09:14)
[2021-02-19] MEDS ORDERED: ALBU2.5V7 NEB (11:08)
[2021-02-19] MEDS ORDERED: CALC-227 PO (11:08)
[2021-02-19] MEDS ORDERED: THIA100T13 PO (11:08)
[2021-02-19] MEDS ORDERED: PANT40TA49 PO (11:08)
[2021-02-19] MEDS ORDERED: ACID1TAB4 PO (11:08)
[2021-02-19] MEDS ORDERED: TEMA7.5C PO (11:08)
[2021-02-19] MEDS ORDERED: MULT-24 PO (11:08)
[2021-02-19] MEDS ORDERED: ESCI-9 PO (11:08)
[2021-02-19] MEDS ORDERED: CYAN10006 IM (11:08)
[2021-02-19] MEDS ORDERED: ENOX40DI SQ (11:08)
[2021-02-19 11:53] VITALS: BP 107/68
[2021-02-19 15:55] VITALS: BP 118/73
--- NOTE | 2021-02-19 17:15 | NUR ---
Discharged patient to [facility]. Patient AOx4. On room air. No signs of acute distress. Patient denies pain/ discomfort. Discharge instructions given to patient. Patient verbalized understanding. Belongings accounted for and belongings list signed. IV access removed. ID armband removed. Nursing report given to RN at [facility]. Patient left hospital via ambulance [facility].
[2021-02-23] MEDS ORDERED: CYANOCOBALAMIN 1000 MCG/ML VIAL IM SCH (09:00)
[2021-04-16] MEDS ORDERED: CYANOCOBALAMIN 1000 MCG/ML VIAL IM SCH (09:00)
== END 2021-02-19 17:00 | DRG 720 ==
LOC: ER 23:21 → MEDSURG3 01-24 03:48 → TELE3 01-24 18:14 → CCU 01-25 23:05 → TELE3 02-13 10:29 → MEDSURG3 02-14 10:00
PROVIDERS: ADMIT Nurse Practitioner Acute Care; ATTEND Nurse Practitioner Acute Care
PROC: 0BH18EZ Insertion of Endotracheal Airway into Trachea, Via Natural or Artificial Opening Endoscopic (ICD-10-PCS; principal; 2021-01-26)
PROC: 5A1955Z Respiratory Ventilation, Greater than 96 Consecutive Hours (ICD-10-PCS; principal; 2021-01-26)
PROC: 009U3ZX Drainage of Spinal Canal, Percutaneous Approach, Diagnostic (ICD-10-PCS; 2021-01-27)
PROC: B01BZZZ Fluoroscopy of Spinal Cord (ICD-10-PCS; 2021-01-27)
PROC: 05H633Z Insertion of Infusion Device into Left Subclavian Vein, Percutaneous Approach (ICD-10-PCS; 2021-02-01)
PROC: B547ZZA Ultrasonography of Left Subclavian Vein, Guidance (ICD-10-PCS; 2021-02-01)
DX: A41.9 Sepsis, unspecified organism (principal); J96.01 Acute respiratory failure with hypoxia; G92 Toxic encephalopathy; A92.32 West Nile virus infection with other neurologic manifestation; A87.8 Other viral meningitis; R57.9 Shock, unspecified; G61.0 Guillain-Barre syndrome; D68.59 Other primary thrombophilia; B25.8 Other cytomegaloviral diseases; E87.2 Acidosis; R33.9 Retention of urine, unspecified; E87.6 Hypokalemia; Z20.822 Contact with and (suspected) exposure to COVID-19; D64.9 Anemia, unspecified; E86.9 Volume depletion, unspecified; E87.1 Hypo-osmolality and hyponatremia; E88.09 Other disorders of plasma-protein metabolism, not elsewhere classified; F41.9 Anxiety disorder, unspecified; K56.41 Fecal impaction; R74.01 Elevation of levels of liver transaminase levels; K29.70 Gastritis, unspecified, without bleeding; K52.9 Noninfective gastroenteritis and colitis, unspecified; R00.1 Bradycardia, unspecified; Q21.1 Atrial septal defect; D25.9 Leiomyoma of uterus, unspecified; Z74.09 Other reduced mobility
CPT/HCPCS: 36415; 36600; 51702; 62270; 70030-TC; 70450; 70496; 70551; 71045; 74018; 76856; 76857; 83605; 83690; 83735; 83935; 84100; 84132; 84157; 84443; 84703; 85025; 85610; 85730; 86038; 86625; 86644; 86645; 86704; 86705; 86706; 86708; 86709; 86788; 86789; 86803; 87040; 87046; 87070; 87086; 87177; 87205; 87210; 87328; 87350; 87400; 87491; 87496; 87521; 87536; 87806; 89051; 89055; 93005; 93307; 94003; 97161; A4663; A6209; G0378; J0133; J0290; J0330; J0610; J0696; J1450; J1570; J1650; J1720; J1940; J2060; J2405; J2930; J3010; J3370; J3420; J3480; J3490; J7030; J7040; J7050; J7060; P9047; Q9967; U0003

== ENCOUNTER 2021-03-24 16:25 | Emergency (ER) | payer MEDICAID ==
[~2021-03-24] VITALS: Ht 162.6 cm; Wt 61.2 kg
[~2021-03-24 16:25] MED LIST changes: +ACID1TAB4 PO; +ALBU2.5V7 NEB; +CALC-227 PO; +CYAN10006 IM; +ENOX40DI SQ; +ESCI-9 PO; -ESCI10TA PO; +MULT-24 PO; +PANT40TA49 PO; +TEMA7.5C PO; +THIA100T13 PO
--- NOTE | 2021-03-24 16:47 | NUR ---
PT IS IN ROOM #2A. DR GOLDSTEIN EVALUATED THE PT.
[2021-03-24] MEDS ORDERED: NITR100C11 PO (17:29)
--- NOTE | 2021-03-24 18:02 | NUR ---
[facility] WAS CALLED [phone] TO TRANSFER PAT TO [facility]. SEUN IS 1 HOUR.
--- NOTE | 2021-03-24 19:05 | NUR ---
RECEIVED REPORT FROM GARO CHAN. PT IS NOTED TO BE IN BED, RESTING COMFORTABLY.
--- NOTE | 2021-03-24 19:07 | NUR ---
REPORT WAS GIVEN TO PHILANTHROPY OFFICERSOIL SCIENCE PROFESSOR.
--- NOTE | 2021-03-24 19:19 | NUR ---
FOLLOWED UP ON [facility], SPOKE WITH YUSEF, PROVIDED ETA OF 20-25 MINS.
--- NOTE | 2021-03-24 19:41 | NUR ---
[facility] UNIT [address] AT BEDSIDE, TO DISCHARGE PT HOME.
[2021-03-24] MEDS ORDERED: hydrALAZINE HCL IV 20 MG in IV NORMAL SALINE 50 ML IV SCH (20:00)
--- NOTE | 2021-03-24 20:05 | NUR ---
Patient discharged to home in stable condition. Denies any pain/discomfort upon discharge. Written and verbal after care instructions given. Patient verbalizes understanding of instructions. Stressed follow up or return to ER for worsening s/s.
[2021-03-24 20:11] VITALS: BP 123/76
== END 2021-03-24 20:00 | disposition home or self-care (01) ==
LOC: ER 16:26
DX: T83.021A Displacement of indwelling urethral catheter, initial encounter (principal); R33.9 Retention of urine, unspecified; K58.9 Irritable bowel syndrome, unspecified
CPT/HCPCS: 51702; A4663

== ENCOUNTER 2021-04-05 15:52 | Emergency (ER) | payer MEDICAID, OTHER ==
[~2021-04-05] VITALS: Ht 165.1 cm; Wt 54.4 kg
[~2021-04-05 15:52] MED LIST changes: +NITR100C11 PO
--- NOTE | 2021-04-05 17:14 | NUR ---
Jensen subramanian in [facility] - 04/05/21 at 1742 by DANY PT NOT IN THE DEPARTMENT.
[2021-04-05 17:27] LABS: *BILIRUBIN,URIN NEGATIVE (NEGATIVE); *BLOOD, URINE 1+ (NEGATIVE); *CLARITY,URINE SLIGHTLY CLOUDY (CLEAR); *COLOR,URINE YELLOW (YELLOW); *KETONES,URINE NEGATIVE (NEGATIVE); *UROBILINOGEN,URINE 0.2 E.U./dl (NORMAL); LEUKOCYTE ESTERASE ,URINE 2+ (NEGATIVE); NITRITE, URINE POSITIVE (NEGATIVE); PH,URINE 6.5 (5.0-8.0); UGLUCOSE NEGATIVE (NEGATIVE)
[2021-04-05 17:29] LABS: *URINE HCG, QUAL NEG (NEGATIVE)
[2021-04-05] MEDS ORDERED: IBUPROFEN 600 MG TABLET PO ONE (18:00)
[2021-04-05] MEDS ORDERED: CEPH500C2 PO (18:00)
[2021-04-05] MEDS ORDERED: IBUPROFEN 600 MG TABLET ONE (18:10)
--- NOTE | 2021-04-05 18:13 | NUR ---
PT ACCOMPANIED BY ART HISTORY INSTRUCTOR.
[2021-04-05 20:17] LABS: BACTERIA,URINE MANY /HPF (NONE SEEN); SQUAMOUS EPITHELIAL CELL,UR FEW /HPF (NONE SEEN); YEAST,URINE FEW /HPF (NONE SEEN)
== END 2021-04-05 18:14 | disposition home or self-care (01) ==
LOC: ER 15:53
DX: N39.0 Urinary tract infection, site not specified (principal); M54.50 Low back pain, unspecified; K58.9 Irritable bowel syndrome, unspecified; Z86.61 Personal history of infections of the central nervous system
CPT/HCPCS: 72131; 84703; 87077; 87086; A4663